=== PATIENT | female | born 1955 | race Caucasian/White ===

== ENCOUNTER → 2017-06-12 07:59 | Outpatient (CLI) | payer OTHER, SELFPAY ==
--- NOTE | 2017-06-12 08:01 | US_ITS ---
STUDY: THYROID ULTRASOUND REASON FOR EXAM: Female, 62 years old. Thyromegaly. TECHNIQUE: Ultrasound evaluation of the thyroid was performed with real-time and static wyatt-scale imaging. COMPARISON: None. FINDINGS: RIGHT LOBE: The right lobe of the thyroid gland measures 4.0 cm x 1.4 cm x 0.8 cm. There is a focal calcification measuring 2 mm x 1 mm x 2 mm is seen in the upper pole of the right lobe. There are no demonstrated solid, cystic or complex lesions. LEFT LOBE: The left lobe of the thyroid gland measures 4.5 cm x 1.2 cm x 0.9 cm. There is a homogeneous echotexture. There are no demonstrated solid, cystic or complex lesions. ISTHMUS: The isthmus measures 3.0 mm. The regional lymph nodes are normal. US/Thyroid IMPRESSION: Normal ultrasound examination of the thyroid. Small calcification in the upper pole of the right lobe of the thyroid. Electronically Signed: Reddy Quintero MD at 14:17 EST Tel [phone], Service support ,
== END ==
PROVIDERS: Family Provider Internal Medicine; PCP Internal Medicine; Visit Provider Internal Medicine
DX: E01.0 Iodine-deficiency related diffuse (endemic) goiter (principal)
CPT/HCPCS: 76536

== ENCOUNTER 2018-07-04 19:34 | Emergency (ER) | payer OTHER, SELFPAY ==
[2018-07-04 19:35] VITALS: BP 168/86; PULSE 86; RESP 17; TEMP 36.8; O2SAT 99; BMI 36.4
--- NOTE | 2018-07-04 19:39 | ED.RN ---
CHARGE NURSE NOTIFIED OF PT SX. PT NOW SX FREE.
[2018-07-04 20:37] VITALS: BP 121/65; PULSE 77; RESP 21; O2SAT 96
[2018-07-04 20:53] LABS: Anion Gap 8 (5-15); BUN 20 mg/dL (7-18); BUN/Creat Ratio 20.9 RATIO (10-20); Calcium,Total 9.1 mg/dL (8.5-10.1); Chloride 103 mmol/L (98-107); Creatinine, Serum 0.96 mg/dL (0.55-1.02); EST Glomerular Filtration Rate 62 mL/min (>60); Est Glom Filt Rate - Afr Amer 76 mL/min (>60); Estimated Creatinine Clearance 53.27 ml/min; Glucose 127 mg/dL (74-106); Potassium 3.5 mmol/L (3.5-5.1); Sodium Level 137 mmol/L (136-145)
[2018-07-04 21:04] VITALS: BP 121/65; PULSE 79; RESP 14; O2SAT 95
--- NOTE | 2018-07-04 21:15 | ED.VISSUMM ---
- ER Visit Summary Date of Service: 07/04/18 Chief Complaint: Paresthesia History of Present Illness: The patient is a 63 F presenting with numbness both arms. Patient states this occurred 2 hours ago. She states she was laying on the couch and noticed numbness and heaviness of both of her arms. The symptoms lasted approximately 1 minute. She got up and washed the dishes. She started to panic concerned that the symptoms would return and started hyperventilating. She had no numbness or weakness of her legs. No vision changes. No speech changes. She had no lightheadedness or syncope. No chest pain or shortness of breath. No balance problems. She has no PE/DVT risk factors. No recent illness. No other complaints. Physical Examination: Vitals are stable. Patient is afebrile. Alert no acute distress. HEENT exam is unremarkable. Neck is supple. Lungs are clear and equal bilaterally. Heart is regular rate and rhythm. Abdomen is soft nontender nondistended. Extremities are unremarkable. Skin is warm and dry. No focal neurologic deficit. NIH 0 Remainder of exam is unremarkable. Emergency Department Course and Treatment: Patient is asymptomatic in the ED. She states her symptoms lasted for approximately 1 minute. Her symptoms were bilateral. Chemistries were obtained which show glucose 127, BUN 20. Patient remains asymptomatic in the ED. She is advised signs and symptoms for which to return to the ED. Advised follow-up with primary care physician. Disposition: Discharge home Impression: Paresthesias, resolved This note was generated with [employer] dictation software. It may contain incorrect words, spelling, and punctuation that were not noted in review of the chart prior to signing ED Disposition - Plan for ED Patient: Referrals: Kristy Duran DO [Primary Care Provider] -
--- NOTE | 2018-07-04 21:19 | ED.DCSUM_ITS ---
- ER Visit Summary Date of Service: 07/04/18 Chief Complaint: Paresthesia History of Present Illness: The patient is a 63 F presenting with numbness both arms. Patient states this occurred 2 hours ago. She states she was laying on the couch and noticed numbness and heaviness of both of her arms. The symptoms lasted approximately 1 minute. She got up and washed the dishes. She started to panic concerned that the symptoms would return and started hyperventilating. She had no numbness or weakness of her legs. No vision changes. No speech changes. She had no lightheadedness or syncope. No chest pain or shortness of breath. No balance problems. She has no PE/DVT risk factors. No recent illne ss. No other complaints. Physical Examination: Vitals are stable. Patient is afebrile. Alert no acute distress. HEENT exam is unremarkable. Neck is supple. Lungs are clear and equal bilaterally. Heart is regular rate and rhythm. Abdomen is soft nontender nondistended. Extremities are unremarkable. Skin is warm and dry. No focal neurologic deficit. NIH 0 Remainder of exam is unremarkable. Emergency Department Course and Treatment: Patient is asymptomatic in the ED. She states her symptoms lasted for approximately 1 minute. Her symptoms were bilateral. Chemistries were obtained which show glucose 127, BUN 20. Patient remains asymptomatic in the ED. She is advised signs and symptoms for which to return to the ED. Advised follow-up with primary care physician. Disposition: Discharge home Impression: Paresthesias, resolved This note was generated with [employer] dictation software. It may contain incorrect words, spelling, and punctuation that were not noted in review of the chart prior to signing ED Disposition - Plan for ED Patient: Referrals: Kristy Duran DO [Primary Care Provider] -
--- NOTE | 2018-07-04 21:19 | ED.DEP ---
ED Disposition - Plan for ED Patient: Instructions: ED Paraesthesias Referrals: Kristy Duran DO [Primary Care Provider] -
[2018-07-04 21:28] VITALS: BP 121/62; PULSE 75; RESP 18; O2SAT 97
== END 2018-07-04 21:29 | disposition home or self-care (01) ==
LOC: ED 20:42
PROVIDERS: Emergency Provider Emergency Medicine; Family Provider Internal Medicine; PCP Internal Medicine
DX: R20.2 Paresthesia of skin (principal); I10 Essential (primary) hypertension; E78.00 Pure hypercholesterolemia, unspecified
CPT/HCPCS: 80048; 99284; A4216

== ENCOUNTER → 2018-07-20 12:51 | Outpatient (CLI) | payer SELFPAY ==
[2018-07-04 19:35] VITALS: BMI 36.4
--- NOTE | 2018-07-20 12:55 | CT_ITS ---
STUDY: CT CHEST WITHOUT CONTRAST REASON FOR EXAM: Female, 63 years old. Family history of heart disease. RADIATION DOSAGE (If Supplied By Facility): CTDIvol = ( ) mGy, DLP = ( ) mGycm TECHNIQUE: Transaxial imaging was performed without the administration of intravenous contrast material. Individualized dose optimization techniques were used for this CT. COMPARISON: Report from chest CT dated 01/27/2010 FINDINGS: 4 mm round noncalcified nodule lateral right lower lobe is evident on image 31 of series 3. There is no demonstrated pleural abnormality. Normal heart and pericardium. There are calcifications of the coronary arteries. Normal mediastinum. Normal hilar regions. Normal unenhanced pulmonary arteries. Mild scattered atherosclerosis. There are multi-level spondylosis degenerative changes of the thoracic spine. There is no demonstrated abnormality of the visualized upper abdomen. CT/Limited Chest CT w/CCTA IMPRESSION: 1. 4 mm noncalcified right lower lobe nodule. Similar by report of chest CT 01/27/2010, images not available for direct comparison. Electronically Signed: Clarke Morris MD at 13:03 EDT , Service support ,
--- NOTE | 2018-07-20 13:27 | EKG12_ITS ---
Test Reason : ARM HEAVINESS Blood Pressure : / mmHG Vent. Rate : 064 BPM Atrial Rate : 064 BPM P-R Int : 174 ms QRS Dur : 102 ms QT Int : 414 ms P-R-T Axes : 070 -19 050 degrees QTc Int : 427 ms Normal sinus rhythm Incomplete right bundle branch block Borderline ECG Confirmed by RADHA MORIN, MOHSEN ([id number]), video editor ETHEL MARMOLEJO ([id number]) on 07/23/2018 2:09:17 PM Referred By: Kristy Duran Confirmed By:MOHESN GARCIA MD
--- NOTE | 2018-07-20 19:44 | CA.SCORE ---
Calcium Scoring Date of Study:: 07/20/18 Coronary Calcium Scoring: High-resolution Computed Tomographic imaging of the chest was performed on 07-21-18, with particular attention paid to the coronary arteries. Images from the examination were analyzed for the presence and extent of coronary artery calcification , using coronary calcium quantification software. The patient tolerated the procedure well and there were no complications. The results of the coronary calcification analysis are provided below. - Findings Left Main (LM): 0 Left Anterior Descending (LAD): 166 Left Circumflex (LCX): 59 Right Coronary Artery (RCA): 0 Total Agatston Score: 225 Percentile Rankin - Conclusion Calcium Scoring Interpretation: Calcium Score Interpretation 0 No identifiable atherosclerotic plaque. Very low cardiovascular disease risk. <5% chance of presence coronary artery disease A Negative Examination 1-10 Minimal Plaque burden. Significant coronary artery disease very unlikely. 11-100 Mild plaque burden. Likely mild or minimal coronary atherosclerosis. 101-400 Moderate plaque burden Moderate non-obstructive coronary artery disease highly likely. Over 400 Extensive plaque burden. High likelihood of at least one significant coronary stenosis (>50% diameter) Calcium Score: 101 - 400 Moderate non-obstructive coronary artery disease highly like - A coronary calcium score of 225, based upon pre-published reference tables, would be compatible with concerns of moderate plaque burden and the high likelihood of moderate nonobstructive coronary artery disease.
== END ==
PROVIDERS: Family Provider Internal Medicine; PCP Internal Medicine; Referring Provider Internal Medicine; Visit Provider Internal Medicine
DX: Z82.49 Family history of ischemic heart disease and other diseases of the circulatory system (principal); R29.898 Other symptoms and signs involving the musculoskeletal system
CPT/HCPCS: 75571; 76380; 93005

== ENCOUNTER → 2019-01-28 08:49 | Outpatient (CLI) | payer OTHER, SELFPAY ==
[2019-01-24 14:22] VITALS: BMI 35.0
== END ==
PROVIDERS: Family Provider Internal Medicine; PCP Internal Medicine; Referring Provider Internal Medicine Cardiovascular Disease; Visit Provider Internal Medicine Cardiovascular Disease
DX: R00.0 Tachycardia, unspecified (principal)
CPT/HCPCS: 93225; 93226

== ENCOUNTER → 2019-02-12 06:16 | Outpatient (CLI) | payer OTHER, SELFPAY ==
[2019-01-24 14:22] VITALS: BMI 35.0
--- NOTE | 2019-02-12 09:21 | STRESSREP ---
Stress Test Report Date: 02-12-19 Procedure: Exercise tolerance test/imaging study Indications: Palpitations, abnormal cardiac CT scan/coronary calcium score Consent: Per the patient Procedure: The patient exercised on a Rivera protocol for 6 minutes completing Stage II achieving a peak heart rate of 137 bpm (87 % predicted maximal heart rate) with a peak blood pressure 166/58 mmHg and a peak MET capacity of 7 METs. The baseline ECG demonstrated normal sinus rhythm. The peak exercise ECG demonstrated approximately 1 to [address] segment depression in leads II, III, aVF, and approximately 0.5 to [address] segment depression in leads V4 through V6 with subsequent gradual resolution to baseline in recovery. [There were no cardiac dysrhythmias pretest, during exercise, or recovery]. The functional capacity was considered average. There was [no complaint of chest discomfort during exercise or recovery]. The examination was discontinued secondary to dyspnea. Impression: 1. Technically adequate (percent predicted maximal heart rate greater than 85%) exercise tolerance test 2. Peak exercise ECG with approximately 1 to [address] segment depression in leads II, 3, aVF, and approximately 0.5 to [address] segment depression in leads V4 through V6 with subsequent gradual resolution to baseline in recovery 3. [There were no cardiac dysrhythmias pretest, during exercise, or recovery] 4. Nuclear images pending Myocardial perfusion imaging study: Technique: The patient was injected with 12.0 mCi of technetium 99m Cardiolite and subsequently rest SPECT Cardiolite nuclear imaging was obtained in the horizontal long, vertical long, and short axis views. The patient exercised on a Rivera protocol for 6 minutes completing Stage II achieving a peak heart rate of 137 bpm (87 % predicted maximal heart rate) with a peak blood pressure 166/58 mmHg and a peak MET capacity of 7 METs. The patient was injected with 35.6 mCi of technetium 99m Cardiolite and subsequently stress SPECT Cardiolite nuclear imaging was obtained in the horizontal long, vertical long, and short axis views. A gated Cardiolite study at peak stress was obtained. Interpretation: Rest and stress SPECT Cardiolite nuclear imaging status post realignment, normalization, and attenuation correction, demonstrates extracardiac/gastrointestinal tracer uptake. Otherwise there appears to be relative uniform tracer uptake and myocardial perfusion appearing within normal limits. [There is end systolic thickening and brightening]. The gated Cardiolite study demonstrates [myocardial thickening and inward wall motion]. The reported LVEF is 74 %. Impression: 1. Rest and stress SPECT Cardiolite nuclear imaging demonstrate findings compatible with extracardiac/gastrointestinal tracer uptake and otherwise of uniform tracer uptake and myocardial perfusion appearing within normal limits. 2. The gated Cardiolite study reports an LVEF of 74 %. This note was generated with [employer] software. It may contain incorrect words, spelling, and punctuation that were not noted in checking the note before signing.
== END ==
PROVIDERS: Family Provider Internal Medicine; PCP Internal Medicine; Referring Provider Internal Medicine Cardiovascular Disease; Visit Provider Internal Medicine Cardiovascular Disease
DX: R00.0 Tachycardia, unspecified (principal); E78.00 Pure hypercholesterolemia, unspecified; I10 Essential (primary) hypertension; R93.1 Abnormal findings on diagnostic imaging of heart and coronary circulation
CPT/HCPCS: 78452; 93017; A9500; A4216

== ENCOUNTER 2019-03-08 07:08 | Day surgery (SDC) | payer OTHER, SELFPAY ==
[2019-01-24 14:22] VITALS: BMI 35.0
[2019-02-26 12:59] VITALS: BMI 36.4
--- NOTE | 2019-02-26 14:05 | RAD_ITS ---
HISTORY: SOB, pt. states she has chest discomfort off and on, pre heart cath EXAM: XR Chest 2 Views: COMPARISON: CT scan of the chest is partly available from July 20, 2018 FINDINGS: # of images incl. paperwork: 2 Lungs are clear. Heart is not enlarged. Bones are normal. Pulmonary vascularity is distinct. No effusions. RAD/Chest PA and Lateral IMPRESSION: Normal. at 0243 Reported and signed by: Barry Vizcarra MD Electronically Signed: Barry Vizcarra MD at 2:42 EST Tel , Service support ,
[2019-02-26 15:21] LABS: Hematocrit 40.7 % (37-47); Hemoglobin 12.8 g/dL (12.0-15.0); Mean Corp Hgb Conc 31.4 g/dL (32-36); Mean Corpuscular Hgb 27.9 pg (27.0-32.0); Mean Corpuscular Volume 88.7 fL (81-99); Mean Platelet Vol. 9.5 fl (6.2-12.0); Platelet Count 339 K/mm3 (150-450); RBC Distribution Width CV 13.8 % (11.6-14.6); RBC Distribution Width SD 44.8 fl (35.1-43.9); Red Blood Count 4.59 M/mm3 (4.2-5.4); White Blood Count 10.1 K/mm3 (4.4-11.0)
[2019-02-26 15:33] LABS: International Normalized Ratio 0.9; Prothrombin Time (Protime)PT. 12.2 SECONDS (11.7-14.9)
[2019-02-26 15:34] LABS: Partial Thromboplast Time 26.9 Seconds (24.1-36.2)
[2019-02-26 15:56] LABS: Anion Gap 8 (5-15); BUN 17 mg/dL (7-18); BUN/Creat Ratio 20.1 RATIO (10-20); Calcium,Total 8.9 mg/dL (8.5-10.1); Chloride 103 mmol/L (98-107); Creatinine, Serum 0.85 mg/dL (0.55-1.02); EST Glomerular Filtration Rate 72 mL/min (>60); Est Glom Filt Rate - Afr Amer 87 mL/min (>60); Glucose 77 mg/dL (74-106); Potassium 3.6 mmol/L (3.5-5.1); Sodium Level 139 mmol/L (136-145)
--- NOTE | 2019-03-08 07:06 | HP.PCM_ITS ---
Problem List (1) Chest pain Status: Acute (2) Shortness of breath Status: Acute (3) Abnormal stress test Status: Acute (4) Abnormal cardiac CT angiography Status: Acute (5) Pure hypercholesterolemia Status: Chronic (6) Benign essential hypertension Status: Chronic History and Physical Date of Admission: 03/08/19 [facility] [address] [place] [address] OFFICE VISIT Date of Service: 02/26/19 MR#: [id number] Acct: [id number] Name: CHARLENE CLEMENTS Rep #: [id number] : 1955 Provider: Steph Meraz Age/Sex: 63/F Location: [facility] Status: Signed HPI [facility] History of Present Illness Details: This is a 63-year-old female that recently established with us for an abnormal calcium score and tachycardia. She also has a history of hypertension, hyperlipidemia and diabetes. Pt does not that she is winded with activity. It is difficult to say if this is related to her weight or her heart. Sometimes she does feel a slight chest heaviness. This is usually at rest. It lasts a few minutes. It is a 3/10. This occurs a few times a week. She is sometimes SOB at rest. She does not have any orthopnea. She does occasionally have palpitations. These last from a few minutes to one hour. She does not have any near syncope/syncope. She does occasionally have lightheadedness- she questions if this is related to her diet. She does not have any edema. Pt has multiple questions, they were answered. Intake Vital Signs 02/26/19 Height 5 ft 5 in 02/26/19 Weight: 219 lb 02/26/19 Body Mass Index (BMI) 36.4 02/26/19 Blood Pressure 112/60 02/26/19 Blood Pressure Location Lt brachial 02/26/19 Blood Pressure Position Sitting 02/26/19 Respiratory Rate 16 02/26/19 Pulse Source Monitor Intake Visit Reasons: update H & P Sweeper Driver Required: No Accompanied by: None Is patient in pain?: No Allergies rosuvastatin [From Crestor] Adverse Reaction (Unknown, Verified 02/26/19 13:00) Unknown Penicillins Adverse Reaction (Verified 02/26/19 13:00) Other Medications atorvastatin 40 mg tablet 40 mg PO QHS tab 01/04/19 [History Confirmed 02/26/19] lorazepam 0.5 mg tablet 0.5 mg PO Q6H PRN tab 01/04/19 [History Confirmed 01/24/19] metformin 500 mg tablet 1,000 mg PO DAILY tab 01/04/19 [History Confirmed 02/26/19] metoprolol succinate ER 25 mg tablet,extended release 24 hr 25 mg PO DAILY 01/04/19 [History Confirmed 02/26/19] aspirin 81 mg tablet,delayed release 81 mg PO DAILY 01/24/19 [History Confirmed 02/26/19] estradiol 0.5 mg tablet 0.5 mg PO .QOD tab 01/24/19 [History Confirmed 02/26/19] hydrochlorothiazide 12.5 mg tablet 12.5 mg PO DAILY 01/24/19 [History Confirmed 02/26/19] lisinopril 20 mg tablet 20 mg PO DAILY 01/24/19 [History Confirmed 02/26/19] clopidogrel 75 mg tablet 75 mg PO DAILY #30 tab 02/26/19 [Rx Confirmed 02/26/19] [facility] Medical History Hypothyroidism (Chronic) Type 2 diabetes mellitus (Chronic) Pure hypercholesterolemia (Chronic) Tachycardia (Acute) Abnormal cardiac CT angiography (Acute) Benign essential hypertension (Chronic) Nodule of right lung (Chronic) Thyromegaly (Chronic) Surgical History History of appendectomy (Resolved) History of dilatation and curettage (Resolved) History of total hysterectomy (Resolved) Family History Mother Abdominal aortic aneurysm (AAA) Sister Hypertension Diabetes Father CAD (coronary artery disease) Social History (Updated 02/26/19 @ 14:09 by JADEN Beauchamp) Smoking Status: Former smoker alcohol intake: never substance use type: does not use caffeine: Yes Type: carbonated beverages Number of servings: 1 ROS Const Const: Positive for fatigue; negative for weakness, frequent falls, excessive sweating, weight gain or weight loss Eyes Eyes: Negative for transient loss of vision, blurry vision or change in vision ENT ENT: Positive for dizziness (quick head turns on occasion); negative for balance problems Cardio Chest Pain: No Palpitations: Yes (QOD) feels like its: fast, pounding, irregular Edema: Bilateral (occasional) Muscle aches with walking: None Resp Respiratory: Positive for SOB with activity (with palpitations and activity); negative for SOB at rest GI GI: Negative vomiting or vomiting blood/hematemesis : Negative for hematuria Musc Musc: Negative for balance problems Skin Skin: Negative non-healing lesions or rash Neuro Neuro: Positive for dizziness (quick head turns on occasion); negative for frequent falls, weakness or blurry vision [place] Hematologic/Lymphatic: Negative for easy bleeding Endo Endo: Positive for fatigue; negative for excessive sweating Psych Psych: Negative for anxiety or depression Allergy Allergy/Immunology: Negative for rash Cardiology Exam Const Appearance: cooperative, no acute distress and well developed Nutritional Appearance: obese Orientation: alert, awake and oriented x3 Head Head: normocephalic and atraumatic Mouth: moist mucous membranes Eyes General: appearance normal, both eyes and all related structures Conjunctivae: conjunctivae normal Pupils: PERRL EOM: EOM intact bilaterally Neck Neck: normal visual inspection, no lymphadenopathy and no JVD Carotids: Negative bruit Neck Mass: Negative Neck mass Chest Chest inspection: normal inspection of the chest and symmetric chest movement Auscultation: Bilateral: Clear to Auscultation Cardio Palpation: normal PMI Rate: regular rate Rhythm: regular rhythm Heart sounds: S1 normal and S2 normal; negative rub, gallop or murmur GI GI: normal to inspection, soft, no hepatosplenomegaly, bowel sounds present and obese; negative tender Neuro General: alert, awake, oriented x3, CN's II-XI intact bilaterally and moves all extremities Extremities Pulses: Normal: Right Posterior Tibial Pulse, Left Posterior Tibial Pulse, Right Radial Pulse, Left Radial Pulse Lower Extremity Edema: None: Bilateral Psych Psychological: normal affect Assessment & Plan 1. Abnormal stress test R94.39 Plan With patient's abnormal calcium score and indeterminate stress test would like to proceed with a diagnostic heart catheterization to further assess. After talking with patient she does have some symptoms that could be concerning for coronary artery disease. Her heart catheterization is scheduled for March [address] Romo. We will follow-up with patient after heart catheterization. 2. Benign essential HTN I10 Plan Blood pressure is well controlled on current medications, we do not recommend any changes at this time. 3. Pure hypercholesterolemia E78.00 Plan managed by her PCP, she will continue with her current medications. 4. Tachycardia R00.0 Plan 48 HM was done, she does have PAC/PVC. For now will continue to monitor. Plan Detail Other Medications New: clopidogrel (Plavix) 75 mg PO DAILY 30 tabs 3RF Additional Comments Thank you for allowing us to participate in patient's plan of care, if you have any questions please do not hesitate to call. This note was generated using a voice recognition system and there may be incorrect words, spelling or punctuation errors that were not noted when reviewing the office note prior to saving. Follow Up 02/26/19 (cancel appt with me on the and make one for 2 weeks after heart cath) Coding Level of Care Code Off vis,est,level 3 Diagnoses Abnormal stress test R94.39 Benign essential HTN I10 Pure hypercholesterolemia E78.00 Tachycardia R00.0 Coding Level of Care Code Off vis,est,level 3 Diagnoses Abnormal stress test R94.39 Benign essential HTN I10 Pure hypercholesterolemia E78.00 Tachycardia R00.0 Supplemental Info Supplemental Information Stress test in 2019: The patient exercised on a Rivera protocol for 6 minutes completing Stage II achieving a peak heart rate of 137 bpm (87 % predicted maximal heart rate) with a peak blood pressure 166/58 mmHg and a peak MET capacity of 7 METs. The baseline ECG demonstrated normal sinus rhythm. The peak exercise ECG demonstrated approximately 1 to [address] segment depression in leads II, III, aVF, and approximately 0.5 to [address] segment depression in leads V4 through V6 with subsequent gradual resolution to baseline in recovery. [There were no cardiac dysrhythmias pretest, during exercise, or recovery]. The functional capacity was considered average. There was [no complaint of chest discomfort during exercise or recovery]. The examination was discontinued secondary to dyspnea. Impression: 1. Technically adequate (percent predicted maximal heart rate greater than 85%) exercise tolerance test 2. Peak exercise ECG with approximately 1 to [address] segment depression in leads II, 3, aVF, and approximately 0.5 to [address] segment depression in leads V4 through V6 with subsequent gradual resolution to baseline in recovery 3. [There were no cardiac dysrhythmias pretest, during exercise, or recovery] 4. Nuclear images pending Myocardial perfusion imaging study: Technique: The patient was injected with 12.0 mCi of technetium 99m Cardiolite and subsequently rest SPECT Cardiolite nuclear imaging was obtained in the horizonta l long, vertical long, and short axis views. The patient exercised on a Rivera protocol for 6 minutes completing Stage II achieving a peak heart rate of 137 bpm (87 % predicted maximal heart rate) with a peak blood pressure 166/58 mmHg and a peak MET capacity of 7 METs. The patient was injected with 35.6 mCi of technetium 99m Cardiolite and subsequently stress SPECT Cardiolite nuclear imaging was obtained in the horizontal long, vertical long, and short axis views. A gated Cardiolite study at peak stress was obtained. Interpretation: Rest and stress SPECT Cardiolite nuclear imaging status post realignment, normalization, and attenuation correction, demonstrates extracardiac/gastrointestinal tracer uptake. Otherwise there appears to be relative uniform tracer uptake and myocardial perfusion appearing within normal limits. [There is end systolic thickening and brightening]. The gated Cardiolite study demonstrates [myocardial thickening and inward wall motion]. The reported LVEF is 74 %. Impression: 1. Rest and stress SPECT Cardiolite nuclear imaging demonstrate findings compatible with extracardiac/gastrointestinal tracer uptake and otherwise of uniform tracer uptake and myocardial perfusion appearing within normal limits. 2. The gated Cardiolite study reports an LVEF of 74 %. Date of Study:: 07/20/18 Coronary Calcium Scoring: High-resolution Computed Tomographic imaging of the chest was performed on 07-21-18, with particular attention paid to the coronary arteries. Images from the examination were analyzed for the presence and extent of coronary artery calcification , using coronary calcium quantification software. The patient tolerated the procedure well and there were no complications. The results of the coronary calcification analysis are provided below. - Findings Left Main (LM): 0 Left Anterior Descending (LAD): 166 Left Circumflex (LCX): 59 Right Coronary Artery (RCA): 0 Total Agatston Score: 225 Percentile Rankin Diagnostics Electrocardiogram 01/24/19 Stress Test Nuclear Medicine 02/12/19 Stress Test 02/12/19 Chest X-Ray 03/08/[address] 07/20/18 02/26/19 [id number] <Electronically signed by Steph Zimmerman> Date _ Steph Serrano Signature: Date (if applicable) CC: Kristy Duran DO ~ I have examined the patient the following changes are noted: Patient underwent exercise tolerance test/imaging study as part of her evaluation for her symptoms and her abnormal cardiac CTA coronary calcium score. The results are as noted below. Stress Test Report Date: 02-12-19 Procedure: Exercise tolerance test/imaging study Indications: Palpitations, abnormal cardiac CT scan/coronary calcium score Consent: Per the patient Procedure: The patient exercised on a Rivera protocol for 6 minutes completing Stage II achieving a peak heart rate of 137 bpm (87 % predicted maximal heart rate) with a peak blood pressure 166/58 mmHg and a peak MET capacity of 7 METs. The baseline ECG demonstrated normal sinus rhythm. The peak exercise ECG demonstrated approximately 1 to [address] segment depression in leads II, III, aVF, and approximately 0.5 to [address] segment depression in leads V4 through V6 with subsequent gradual resolution to baseline in recovery. [There were no cardiac dysrhythmias pretest, during exercise, or recovery]. The functional capacity was considered average. There was [no complaint of chest discomfort during exercise or recovery]. The examination was discontinued secondary to dyspnea. Impression: 1. Technically adequate (percent predicted maximal heart rate greater than 85%) exercise tolerance test 2. Peak exercise ECG with approximately 1 to [address] segment depression in leads II, 3, aVF, and approximately 0.5 to [address] segment depression in leads V4 through V6 with subsequent gradual resolution to baseline in recovery 3. [There were no cardiac dysrhythmias pretest, during exercise, or recovery] 4. Nuclear images pending Myocardial perfusion imaging study: Technique: The patient was injected with 12.0 mCi of technetium 99m Cardiolite and subsequently rest SPECT Cardiolite nuclear imaging was obtained in the horizontal long, vertical long, and short axis views. The patient exercised on a Rivera protocol for 6 minutes completing Stage II achieving a peak heart rate of 137 bpm (87 % predicted maximal heart rate) with a peak blood pressure 166/58 mmHg and a peak MET capacity of 7 METs. The patient was injected with 35.6 mCi of technetium 99m Cardiolite and subsequently stress SPECT Cardiolite nuclear imaging was obtained in the horizontal long, vertical long, and short axis views. A gated Cardiolite study at peak stress was obtained. Interpretation: Rest and stress SPECT Cardiolite nuclear imaging status post realignment, normalization, and attenuation correction, demonstrates extracardiac/gastrointestinal tracer uptake. Otherwise there appears to be relative uniform tracer uptake and myocardial perfusion appearing within normal limits. [There is end systolic thickening and brightening]. The gated Cardiolite study demonstrates [myocardial thickening and inward wall motion]. The reported LVEF is 74 %. Impression: 1. Rest and stress SPECT Cardiolite nuclear imaging demonstrate findings compatible with extracardiac/gastrointestinal tracer uptake and otherwise of uniform tracer uptake and myocardial perfusion appearing within normal limits. 2. The gated Cardiolite study reports an LVEF of 74 %. Is post review of the patient's case it was amended that the patient proceed with further evaluation with diagnostic cardiac catheterization. The procedure and risks were discussed with the patient. She agreed to this approach. This note was generated using a voice recognition system and there may be incorrect words, spelling or punctuation that were not noted when reviewing the office note prior to saving.
--- NOTE | 2019-03-08 09:16 | CL.D_ITS ---
Patient Name: CHARLENE CLEMENTS Study Date: 03/08/2019 Performing: Rich Romo MD Ht: 66.14 inches 168 cm : 1955 Wt: 218.26 lbs 99 kg Age: 63 Gender: female BSA: 2.08 PROCEDURE(S) PERFORMED EE61-DFX/COR/LV CLINICAL PROFILE AND INDICATIONS Indications: Suspected CAD Heart Failure: None Stress/Imaging Date: 02/12/2019Stress Test with SPECT MPI: Positive (ECG portion) Angina Classification Anginal Classification w/in 2 Weeks: CCS III CAD Presentations: Other: chest pain / shortness of breath CONCLUSIONS Elevated Left Ventricular End Diastolic Pressure (mild) Normal LV size, wall motion,and systolic function LVEF: by LV gram 65 % [place] Multivessel CAD (mild luminal irregularities) Comment: Left Ventriculogram: 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 The risks and benefits of the procedure as well as a full d escription of our services here and current unavailability of surgical backup were fully explained to the patient and/or their significant other prior to the catheterization. The Timeout was completed, verifying the correct patient and procedure. The patient's procedural site was prepped and draped in the usual fashion. Local anesthetic was given subcutaneously to right groin region with Lidocaine 2%. Using a modified Seldinger technique, arterial access was obtained via the right femoral artery, a 4 Fr sheath was inserted Left Coronary Artery selective angiography was performed in multiple views us ing a 4 Fr. JL5 catheter. Right Coronary Artery selective angiography was then performed in multiple views using a 4 Fr. 3DRC catheter. Left Ventriculography was performed in VASQUEZ projection using a 4 Fr . Pigtail catheter. LV to AO pullback pressures were then recorded.The arterial sheath was pulled and manual compression applied until hemostasis is achieved. CORONARY ANGIOGRAPHY DOMINANCE: Right Dominant LEFT HEART ASSESSMENT Left Ventricular Ejection Fraction: by LV Gram 65 % Normal LV wall motion Elevated Left Ventricular End Diastolic Pressure LVEDP: 17 mmHg LEFT MAIN: Angiographically normal LEFT ANTERIOR DESCENDING ARTERY: PROX LAD: Mild calcification, Mild luminal irregularities CIRCUMFLEX ARTERY: MID CIRC: Mild luminal irregularities RIGHT CORONARY ARTERY: Mild luminal irregularities COMPLICATIONS No Complications PROCEDURE MEDICATIONS Versed 1 mg IV Oxygen: 2 L/min via nasal cannula SUMMARY OF HEMODYNAMIC DATA Time AIR REST ECG 07:33:39 ECG 08:26:03 AO 105/74 (89) SA 08:40:16 LV 131/-13, 19 08:46:06 LV 131/-13, 17 08:46:13 LV 134/-2, 10 08:47:03 LVp 137/-14, 19 08:47:29 AOp 138/62 (95) 08:47:34 Signed By Rich Romo MD On 03/08/2019 09:15:12 Rich Romo MD
== END 2019-03-08 13:25 | disposition home or self-care (01) ==
LOC: CLSP 07:10
PROVIDERS: Family Provider Internal Medicine; PCP Internal Medicine; Referring Provider Internal Medicine Cardiovascular Disease; Visit Provider Internal Medicine Cardiovascular Disease
DX: I25.10 Atherosclerotic heart disease of native coronary artery without angina pectoris (principal); R00.2 Palpitations; R06.02 Shortness of breath; R94.39 Abnormal result of other cardiovascular function study; I10 Essential (primary) hypertension; E11.9 Type 2 diabetes mellitus without complications; E78.5 Hyperlipidemia, unspecified; Z79.899 Other long term (current) drug therapy; Z79.82 Long term (current) use of aspirin; Z79.84 Long term (current) use of oral hypoglycemic drugs; Z79.02 Long term (current) use of antithrombotics/antiplatelets; Z87.891 Personal history of nicotine dependence
CPT/HCPCS: 36415; 71046; 80048; 85027; 85610; 85730; 93458; 99152; 99153; J7040; C1769; C1894; Q9967

== ENCOUNTER → 2019-03-11 07:54 | Outpatient (CLI) | payer OTHER, SELFPAY ==
[2019-02-26 12:59] VITALS: BMI 36.4
[2019-03-11 09:22] LABS: Anion Gap 8 (5-15); BUN 17 mg/dL (7-18); BUN/Creat Ratio 17.2 RATIO (10-20); Chloride 101 mmol/L (98-107); Creatinine, Serum 0.99 mg/dL (0.55-1.02); EST Glomerular Filtration Rate 60 mL/min (>60); Est Glom Filt Rate - Afr Amer 73 mL/min (>60); Glucose 139 mg/dL (74-106); Sodium Level 139 mmol/L (136-145)
== END ==
PROVIDERS: Family Provider Internal Medicine; PCP Internal Medicine; Referring Provider Internal Medicine Cardiovascular Disease; Visit Provider Internal Medicine Cardiovascular Disease
DX: R06.02 Shortness of breath (principal); I10 Essential (primary) hypertension
CPT/HCPCS: 36415; 80048

== ENCOUNTER → 2019-03-22 12:56 | Outpatient (CLI) | payer OTHER, SELFPAY ==
[2019-02-26 12:59] VITALS: BMI 36.4
--- NOTE | 2019-03-22 12:59 | ECHOCS_ITS ---
Reason For Study: DYPSNEA/SOB Procedure This was a 2D Doppler, Color Flow transthoracic echocardiogram. The study was technically difficult. Contrast injection was performed. Exam performed in department. Left Ventricle Normal LV size. Left ventricular systolic function is normal. The estimated ejection fraction is 60 %. No evidence for diastolic dysfunction. No regional wall motion abnormalities noted. Right Ventricle Normal RV size. Normal systolic function. Atria Normal left atrium. Normal right atrium. No doppler evidence for ASD. Mitral Valve There is mild mitral annular calcification. Extension of the mitral annular calcification onto the posterior mitral valve leaflet. Trivial mitral valve insufficiency. Tricuspid Valve Normal tricuspid valve. Trivial tricuspid valve insufficiency. Right ventricular systolic pressure estimated to be 25 mmHg. Aortic Valve Trisinus/trileaflet aortic valve. Mild focal aortic valve calcification. Pulmonic Valve The pulmonic valve is not well visualized. Trivial pulmonic valve insufficiency. Great Vessels Normal sized aortic root. Pericardium/Pleural No pericardial effusion. Medication 22 gauge I.V. with prn adaptor inserted into left arm. Diluted definity 4ml given slow IV push to enhance endocardial definition. MMode/2D Measurements & Calculations LVIDd: 4.3 cm IVSd: 0.86 cm Ao root diam: 2.7 cm LVIDs: 2.9 cm LVPWd: 0.91 cm FS: 33.2 % LAV(MOD-bp): 37.5 ml LVAd ap4: 20.3 cm2 SV(MOD-sp4): 33.5 ml LAV(MOD-bp) Indexed: 18.3 ml/m2 EDV(MOD-sp4): 52.8 ml LAV(MOD-sp2): 29.4 ml EDV(sp4-el): 55.2 ml LAV(MOD-sp4): 39.7 ml LVAs ap4: 10.7 cm2 ESV(MOD-sp4): 19.3 ml ESV(sp4-el): 20.0 ml EF(MOD-sp4): 63.4 % EF(sp4-el): 63.7 % SV(sp4-el): 35.2 ml LA A4 area: 16.6 cm2 LA dimension(2D): 3.8 cm Time Measurements MV dec time: 0.19 sec Doppler Measurements & Calculations MV E max kris: 102.6 cm/sec Lat Peak E' Kris: 8.8 cm/sec Med Peak E' Kris: 11.3 cm/sec MV A max kris: 94.4 cm/sec E/E' lat: 11.6 E/E' med: 9.1 MV E/A: 1.1 Ao V2 max: 130.1 cm/sec LV V1 max: 93.2 cm/sec PA V2 max: 90.9 cm/sec Ao max P.8 mmHg LV V1 max P.5 mmHg TR max kris: 233.5 cm/sec TR max P.8 mmHg Interpretation Summary The study was technically difficult. Contrast injection was performed. Left ventricular systolic function is normal. The estimated ejection fraction is 60 %. There is mild mitral annular calcification. Extension of the mitral annular calcification onto the posterior mitral valve leaflet. Trivial mitral valve insufficiency. Trivial tricuspid valve insufficiency. Mild focal aortic valve calcification. Trivial pulmonic valve insufficiency. Right ventricular systolic pressure estimated to be 25 mmHg. No evidence for diastolic dysfunction. Ordering Physician: Demetrius^Rich^^^ Referring Physician: GI ALBARRAN Performed By: Rylie Denson, TEDDY
== END ==
PROVIDERS: Family Provider Internal Medicine; PCP Internal Medicine; Referring Provider Internal Medicine Cardiovascular Disease; Visit Provider Internal Medicine Cardiovascular Disease
DX: R06.02 Shortness of breath (principal); R07.9 Chest pain, unspecified; R94.39 Abnormal result of other cardiovascular function study; I10 Essential (primary) hypertension; E78.00 Pure hypercholesterolemia, unspecified; R00.0 Tachycardia, unspecified
CPT/HCPCS: 93306; Q9957; A4216; C8929

== ENCOUNTER → 2019-08-09 14:10 | Outpatient (CLI) | payer BC, SELFPAY ==
[2019-02-26 12:59] VITALS: BMI 36.4
== END ==
PROVIDERS: PCP Internal Medicine; Referring Provider Obstetrics & Gynecology; Visit Provider Obstetrics & Gynecology
DX: R30.0 Dysuria (principal)
CPT/HCPCS: 87086; 87088

== ENCOUNTER → 2020-03-18 09:52 | Outpatient (CLI) | payer BC, SELFPAY ==
[2019-02-26 12:59] VITALS: BMI 36.4
[2020-03-10 10:15] VITALS: BMI 34.6
--- NOTE | 2020-03-18 09:57 | US_ITS ---
STUDY: THYROID ULTRASOUND REASON FOR EXAM: Female, 64 years old. THYROMEGALY , nodules TECHNIQUE: Ultrasound evaluation of the thyroid was performed with real-time and static wyatt-scale imaging. COMPARISON: 06/12/2017 FINDINGS: RIGHT LOBE: The right lobe of the thyroid gland measures 4.3 x 1.1 x 1.0 cm. There is a homogeneous echotexture. There is a new hyperechoic solid mass without flow in the upper pole measuring 0.2 x 0.2 x 0.2 cm, there is a anechoic 0.5 cm cyst in the lower pole. LEFT LOBE: The left lobe of the thyroid gland measures 4.7 x 1.1 x 0.7 cm. There is a homogeneous echotexture. There are no demonstrated solid, cystic or complex lesions. ISTHMUS: The isthmus measures 3 mm. The regional lymph nodes are normal. US/Thyroid IMPRESSION: Normal sized homogeneous thyroid gland, there is a new hyperechoic 0.2 x 0.2 x 0.2 cm nodule in the right lobe which is too small to characterize. Recommend 6 month follow-up to ensure stability Electronically Signed: William Wilkerson MD at 17:18 EST , Service support ,
== END ==
PROVIDERS: PCP Internal Medicine; Referring Provider Internal Medicine; Visit Provider Internal Medicine
DX: E01.0 Iodine-deficiency related diffuse (endemic) goiter (principal)
CPT/HCPCS: 76536

== ENCOUNTER → 2020-04-08 08:40 | Outpatient (CLI) | payer BC, SELFPAY ==
[2020-03-10 10:15] VITALS: BMI 34.6
--- NOTE | 2020-04-08 08:41 | BI_ITS ---
MAMMOGRAPHY - BILATERAL SCREENING REASON FOR EXAM: Female, 64 years old. Routine annual screening examination. PERTINENT HISTORY: Non-contributory. History of prior bilateral breast reduction surgery. TECHNIQUE: Digital bilateral breast farrah (3D mammographic acquisition) in the CC and MLO projections. 2-D mediolateral oblique (MLO) and craniocaudad (CC) views of both breasts were obtained. CAD: Full Field Digital Mammography with Computer Added Detection was performed. COMPARISON: Comparison is made with prior examination dated 01/28/2019. FINDINGS: Breast Composition: The breasts are almost entirely fatty. There are no dominant masses or suspicious calcifications. Stable small benign-appearing bilateral axillary lymph nodes. No other significant abnormalities are identified. There has been no significant change since the prior study. BI/SCREEN MAMM (CAD) W/FARRAH BILAT IMPRESSION: Stable bilateral screening mammogram. Yearly follow-up mammogram recommended. (A) ASSESSMENT CATEGORY: BIRADS Category 2: Benign. A letter regarding these results will be sent to the patient by the facility within 30 days. Approximately 10% of breast cancers are not detected by mammography. A normal mammogram should not delay biopsy of a clinically suspicious abnormality. [id number] Electronically Signed: Reddy Quintero, at 9:37 EST , Service support ,
== END ==
PROVIDERS: PCP Internal Medicine; Referring Provider Nurse Practitioner Women's Health; Visit Provider Nurse Practitioner Women's Health
DX: Z12.31 Encounter for screening mammogram for malignant neoplasm of breast (principal)
CPT/HCPCS: 77063; 77067

== ENCOUNTER 2020-11-25 16:34 | Emergency (ER) | payer BC, SELFPAY ==
[2020-03-10 10:15] VITALS: BMI 34.6
[2020-11-25 16:35] VITALS: BP 140/80; PULSE 95; RESP 16; TEMP 37.2; O2SAT 99; BMI 35.9
--- NOTE | 2020-11-25 18:18 | CT_ITS ---
STUDY: CT ABDOMEN AND PELVIS WITH CONTRAST REASON FOR EXAM: Female, 65 years old. diverticulitis RADIATION DOSAGE (If Supplied By Facility): CTDIvol = ( 16.97 ) mGy, DLP = ( 1151.85 ) mGycm TECHNIQUE: Transaxial images were obtained from the dome of the diaphragm to the symphysis pubis without oral contrast. IV 100mL Isovue-370 was administered. Sagittal and coronal images were reconstructed. Individualized dose optimization techniques were used for this CT. COMPARISON: 01/04/2013. FINDINGS: The visualized lung bases are unremarkable. The visualized portions of the heart are within normal limits. There is decreased attenuation of the liver consistent with steatosis. Normal gallbladder and extrahepatic biliary system. Normal spleen. Normal pancreas. Normal bilateral adrenal glands. Normal right kidney. Normal left kidney. Evaluation of the GI tract is limited by absence of oral contrast. Cannot exclude stomach wall thickening. No dilated loops of bowel or evidence for obstruction. Cannot exclude segmental thickening of the mcclain of the small or large bowel. Cannot exclude enteritis or colitis. Moderate diffuse fecal retention. Mild diverticulosis without evidence of diverticulitis. Appendix is not definitely seen. Normal abdominal aorta. Normal inferior vena cava. Normal retroperitoneum. Normal urinary bladder. There is absence of the uterus consistent with a prior hysterectomy. Normal abdominal wall. There are diffuse degenerative changes of the visualized lumbar spine. CT/Abdomen/Pelvis W IV Cont ONLY IMPRESSION: No definite acute or significant abnormality seen. Electronically Signed: Keaton Diaz MD at 19:55 EDT , Service support ,
[2020-11-25] MEDS: 0.9% Normal Saline 1,000 ML 125 ML IV (18:26)
[2020-11-25] MEDS: Ondansetron 4 MG/2 ML Vial IV (18:27)
[2020-11-25] MEDS: Morphine 4 MG/ML Syringe IV (18:27)
[2020-11-25 18:34] VITALS: PULSE 89; RESP 15; O2SAT 97
[2020-11-25 18:53] LABS: Absolute Lymphocyte Count 3.09 X10^3/uL (0.83-4.51); Absolute Neutrophil Count 10.6 X10^3/uL (2.0-7.7); Basophil# 0.07 X10^3/uL; Basophil% 0.5 % (0-1); Eosinophil# 0.17 X10^3/uL; Eosinophils% 1.1 % (0-5); Hematocrit 44.1 % (37-47); Lymphocyte # 3.09 X10^3/ul (0.83-4.51); Lymphocyte % 20.5 % (19-41); Mean Corp Hgb Conc 31.7 g/dL (32-36); Mean Corpuscular Hgb 27.8 pg (27.0-32.0); Mean Corpuscular Volume 87.5 fL (81-99); Mean Platelet Vol. 9.9 fl (6.2-12.0); Monocyte# 1.03 X10^3/uL; Monocyte% 6.8 % (0-10); NRBC Flagged by Analyzer 0 % (0-5); Neutrophil # 10.64 X10^3/uL (2.7-7.7); Neutrophil % 70.6 % (47-70); Platelet Count 440 K/mm3 (150-450); RBC Distribution Width CV 13.3 % (11.6-14.6); RBC Distribution Width SD 43.1 fl (35.1-43.9); Red Blood Count 5.04 M/mm3 (4.2-5.4); White Blood Count 15.1 K/mm3 (4.4-11.0)
[2020-11-25 19:01] LABS: Anion Gap 6 (5-15); BUN 23 mg/dL (7-18); BUN/Creat Ratio 20.9 RATIO (10-20); Calcium,Total 10.6 mg/dL (8.5-10.1); Chloride 100 mmol/L (98-107); EST Glomerular Filtration Rate 53 mL/min (>60); Est Glom Filt Rate - Afr Amer 64 mL/min (>60); Estimated Creatinine Clearance 45.27 ml/min; Glucose 131 mg/dL (74-106); Potassium 3.7 mmol/L (3.5-5.1); Sodium Level 136 mmol/L (136-145)
--- NOTE | 2020-11-25 19:03 | ED.VIS.GI ---
HPI HPI - GI History of Present Illness Chief Complaint: Abd Pain Narrative Narrative: Patient presenting for evaluation secondary to abdominal pain. Patient has recent history of diverticulitis. She was treated with Cipro and Flagyl, and is at the completion of her treatment regimen. Patient states that she initially had left lower quadrant abdominal pain which did improve with her treatment, but she states over the course of about the last 24 hours she has had a reemergence of pain that somewhat different. This is more of a periumbilical pain that is been associated with some nausea and vomiting. She denies any presence of fevers. She does endorse that she had a bloody bowel movement today, and states that she has been having loose stools throughout the course of her treatment. Patient denies any objective fevers associated with this. Review of systems otherwise negative. [facility] Medical History Abnormal cardiac CT angiography Benign essential hypertension History of left heart catheterization (LHC) (~03/08/19) Hypothyroidism Nodule of right lung Pure hypercholesterolemia Thyromegaly Type 2 diabetes mellitus Home Medications atorvastatin 40 mg tablet 40 mg PO QHS tab 01/04/19 [History Last Taken Unknown] metformin 500 mg tablet 1,000 mg PO DAILY tab 01/04/19 [History Last Taken 03/07/19] metoprolol succinate 25 mg tablet,extended release 24 hr 25 mg PO DAILY 01/04/19 [History Last Taken 03/08/19] aspirin 81 mg tablet,delayed release 81 mg PO DAILY 01/24/19 [History Last Taken 03/08/19] hydrochlorothiazide 12.5 mg tablet 12.5 mg PO DAILY 01/24/19 [History Last Taken Unknown] lisinopril 20 mg tablet 20 mg PO DAILY 01/24/19 [History Last Taken 03/08/19] ascorbic acid 125 mg-collagen, hydrolyzed 740 mg capsule 1 cap PO DAILY 03/10/20 [History Last Taken Unknown] biotin 1 mg capsule 1 mg PO DAILY 03/10/20 [History Last Taken Unknown] estradiol See Rx Instructions VAGINAL .COMPLEX #42.5 g 03/10/20 [Rx Last Taken Unknown] estradiol 0.5 mg tablet 0.25 mg PO .QOD #60 tab 03/10/20 [Rx Last Taken Unknown] multivitamin 1 tab PO DAILY 03/10/20 [History Last Taken Unknown] ondansetron 4 mg PO Q8H PRN PRN #10 tab 11/25/20 [Rx Last Taken Unknown] Allergy/AdvReac Type Severity Reaction Status Date / Time rosuvastatin [From Crestor] AdvReac Unknown Unknown Verified 11/25/20 16:37 Penicillins AdvReac Other Verified 11/25/20 16:37 Family History Mother Abdominal aortic aneurysm (AAA) Sister Hypertension Diabetes Father CAD (coronary artery disease) Surgical History History of appendectomy History of dilatation and curettage History of total hysterectomy Social History household members: spouse number of children: 1 current occupational status: employed current occupation: data review specialist, customer service at [employer] history of recent travel: No sexually active: Yes Smoking Status: Former smoker alcohol intake: current alcohol intake frequency: holidays/special occasions only substance use type: does not use caffeine: Yes Type: carbonated beverages Number of servings: 1 what type of physical activity do you participate in: none seatbelt use: always do you feel safe at home: Yes additional social history: - kyra PISANO ED Constitutional Constitutional ED: Denies chills or fever(s) ENT ENT ED: Denies sore throat Cardiovascular Cardiovascular: Denies chest pain Respiratory/Chest Respiratory/Chest: Denies cough or dyspnea Gastrointestinal Gastrointestinal: Reports abdominal pain and diarrhea Genitourinary Genitourinary ED: Denies dysuria, hematuria or urinary frequency Musculoskeletal Musculoskeletal: Denies myalgias Integumentary Denies rash Neurologic Neurologic: Denies paresthesias or weakness Psychiatric Psychiatric: Denies depression Endocrine Endocrinology: Denies polyuria Hematologic/Lymphatic Hematologic/Lymphatic: Denies easy bleeding or easy bruising Allergic/Immunologic Allergic/Immunologic ED: Denies urticaria EXAM Physical Exam Const Vital Signs: 11/25/20 16:35 11/25/20 18:34 Temperature 99.0 F Temperature Source Temporal Pulse Rate 95 89 Respiratory Rate 16 15 Blood Pressure 140/80 H Blood Pressure Mean 100 Pulse Ox 99 97 Oxygen Delivery Method Room Air Room Air Positive well nourished and well developed General Appearance ED: well developed and NAD HEENT normocephalic and atraumatic Eyes EOMs intact bilaterally General Eye ED: Negative for pale conjunctiva or scleral icterus Neck no lymphadenopathy and supple Resp normal respiratory effort and clear to auscultation bilaterally Cardio regular rate, regular rhythm, no murmurs and peripheral pulses 2+ throughout GI non-distended and no masses Palpation: soft and tender other (Mild periumbilical with no guarding or rebound tenderness noted); Negative for guarding, rigid or rebound tenderness present Back/Spine no CVA tenderness Extremity full ROM General Extremety ED: Negative for edema General Extremity: Negative for edema Neuro moves all extremities and no sensory deficits noted Sensorium / Orientation: alert, oriented to person, oriented to place and oriented to time Motor Exam: strength 5/5 throughout Psych mental status grossly normal Skin Rashes: no rashes MDM MDM MDM Narrative Medical decision making narrative: Patient presented secondary to concern for reemergence diverticulitis with resurgence of nausea and vomiting and a bloody bowel movement. IV was established patient was noted to have a leukocytosis of 15.1. Chemistry was unremarkable. CT abdomen and pelvis with IV contrast was performed, per radiology this shows no acute process. Patient's pain was addressed in the emergency department with morphine and Zofran, she had improvement of her symptoms. At this point I do not feel that the patient requires admission, this likely is normal progression of her diverticulitis and is showing it to have resolution. Patient was educated on signs and symptoms which to return. She did request a discharge prescription for Zofran due to persistent nausea due to her antibiotics. Patient was discharged with this. She will follow-up with primary care. Lab Data Labs: Laboratory Results - last 24 hr 11/25/20 11/25/20 17:55 17:55 WBC 15.1 H RBC 5.04 Hgb 14.0 Hct 44.1 MCV 87.5 MCH 27.8 MCHC 31.7 L RDW Std Deviation 43.1 RDW Coeff of Lucio 13.3 Plt Count 440 MPV 9.9 Immature Gran % (Auto) 0.500 Neut % (Auto) 70.6 H Lymph % (Auto) 20.5 Hardin % (Auto) 6.8 Eos % (Auto) 1.1 Baso % (Auto) 0.5 Absolute Neuts (auto) 10.6 H Absolute Lymphs (auto) 3.09 Nucleated RBC % 0 Sodium 136 Potassium 3.7 Chloride 100 Carbon Dioxide 30.0 Anion Gap 6 BUN 23 H Creatinine 1.10 H Estim Creat Clear Calc 45.27 Est GFR (MDRD) Af Amer 64 Est GFR (MDRD) Non-Af 53 L BUN/Creatinine Ratio 20.9 H Glucose 131 H Calcium 10.6 H Radiography Diagnostic Testing: Radiology Impression Abdomen/Pelvis CT 11/25/20 18:18 IMPRESSION: No definite acute or significant abnormality seen. Electronically Signed: Keaton Diaz MD at 19:55 EDT , Service support , Discharge Plan Triage Chief Complaint: Abd Pain ED Provider: Constantin Askew Dx/Rx/DC Orders Clinical Impression: History of diverticulitis, Abdominal pain Instructions: ED Abdominal Pain Unkn Cause Fem Prescriptions: New ondansetron 4 mg tablet,disintegrating 4 mg PO Q8H PRN PRN (Reason: Nausea) Qty: 10 RF: 0 No Action hydrochlorothiazide 12.5 mg tablet 12.5 mg PO DAILY RF: 0 lisinopril 20 mg tablet 20 mg PO DAILY RF: 0 aspirin [Adult Low Dose Aspirin] 81 mg tablet,delayed release (DR/EC) 81 mg PO DAILY RF: 0 metoprolol succinate 25 mg tablet extended release 24 hr 25 mg PO DAILY RF: 0 atorvastatin 40 mg tablet 40 mg PO QHS RF: 0 metformin 500 mg tablet 1,000 mg PO DAILY RF: 0 multivitamin Tablet 1 tab PO DAILY RF: 0 biotin 1 mg capsule 1 mg PO DAILY RF: 0 ascorbic acid 125 mg-collagen, hydrolyzed 740 mg capsule 125-740 mg capsule 1 cap PO DAILY RF: 0 estradiol 0.5 mg tablet 0.25 mg PO .QOD Qty: 60 RF: 3 estradiol 0.01 % (0.1 mg/gram) cream See Rx Instructions VAGINAL .COMPLEX Qty: 42.5 RF: 2 Primary Care Provider: Kristy Duran Referrals: Kristy Duran DO [Primary Care Provider] - 3-5 Days Disposition Disposition: Home, Self Care
[2020-11-25 20:53] VITALS: RESP 16; RESP 18
== END 2020-11-25 21:27 | disposition home or self-care (01) ==
PROVIDERS: Emergency Provider Emergency Medicine; PCP Internal Medicine
DX: R10.9 Unspecified abdominal pain (principal); R11.2 Nausea with vomiting, unspecified; I10 Essential (primary) hypertension; E11.9 Type 2 diabetes mellitus without complications; E78.00 Pure hypercholesterolemia, unspecified; E03.9 Hypothyroidism, unspecified; R19.7 Diarrhea, unspecified; Z79.82 Long term (current) use of aspirin; Z79.84 Long term (current) use of oral hypoglycemic drugs; Z87.891 Personal history of nicotine dependence; Z87.19 Personal history of other diseases of the digestive system
CPT/HCPCS: 74177; 80048; 85025; 96361; 96374; 96375; 99283; J7030; Q9967; A4216; J2405

== ENCOUNTER → 2021-02-24 07:04 | Outpatient (CLI) | payer BC, SELFPAY ==
--- NOTE | 2021-02-24 07:07 | US_ITS ---
EXAM: US ABDOMEN LIMITED, RIGHT UPPER QUADRANT CLINICAL INDICATION: LOWER ABD PAIN TECHNIQUE: Real-time ultrasound of the right upper quadrant with image documentation. This report was created using [employer] report generation technology. COMPARISON: None. FINDINGS: LIMITATIONS: Limited due to patient condition and inability to tolerate adequate compression. LIVER: Increased echogenicity of the liver is nonspecific but most commonly associated with hepatic steatosis. Focal fatty sparing adjacent to the gallbladder. No hepatic masses. GALLBLADDER: Unremarkable. No shadowing gallstone. No gallbladder wall thickening is demonstrated. No pericholecystic fluid. Negative sonographic Turner''s sign. COMMON BILE DUCT: Unremarkable as visualized. The proximal common bile duct is within normal limits for the patient''s age. PANCREAS: Echogenic pancreas suggesting fatty replacement. No pancreatic masses demonstrated. No pancreatic ductal dilatation. RIGHT KIDNEY: Unremarkable. There is no hydronephrosis. No shadowing calculus. No focal lesion or perinephric collection is demonstrated. US/Abdomen Limited IMPRESSION: Increased echogenicity of the liver is nonspecific but most commonly associated with hepatic steatosis. Electronically Signed: Clarke Morris MD (Brooks) at 9:35 EDT , Service support ,
== END ==
PROVIDERS: PCP Internal Medicine; Referring Provider Nurse Practitioner; Visit Provider Nurse Practitioner
DX: R10.30 Lower abdominal pain, unspecified (principal)
CPT/HCPCS: 76705

== ENCOUNTER → 2021-02-25 13:49 | Outpatient (CLI) | payer BC, SELFPAY ==
--- NOTE | 2021-02-25 13:57 | US_ITS ---
STUDY: ULTRASOUND OF THE FEMALE PELVIS - COMPLETE REASON FOR EXAM: Female, 65 years old. L ABD PAIN LMP: The patient is postmenopausal. TECHNIQUE: Transabdominal TECHNICAL QUALITY: Adequate. COMPARISON: None. FINDINGS: The patient is status post hysterectomy. The patient is status post right oophorectomy. The patient is status post left nephrectomy. There is no fluid in the cul-de-sac. The pre void volume of the bladder was 158 ml. US/Pelvic (Non ) IMPRESSION: Status post hysterectomy and bilateral oophorectomy. Electronically Signed: Reddy Quintero MD at 15:08 EDT , Service support ,
== END ==
PROVIDERS: PCP Internal Medicine; Referring Provider Nurse Practitioner; Visit Provider Nurse Practitioner
DX: R10.30 Lower abdominal pain, unspecified (principal)
CPT/HCPCS: 76856

== ENCOUNTER 2021-06-09 07:18 | Outpatient (CLI) | payer BC, SELFPAY ==
--- NOTE | 2021-06-09 07:19 | BI_ITS ---
MAMMOGRAPHY - BILATERAL SCREENING REASON FOR EXAM: Female, 66 years old. Routine annual screening examination. PERTINENT HISTORY: Non-contributory. TECHNIQUE: Digital bilateral breast farrah (3D mammographic acquisition) in the CC and MLO projections. 2-D mediolateral oblique (MLO) and craniocaudad (CC) views of both breasts were obtained. CAD: Full Field Digital Mammography with Computer Added Detection was performed. COMPARISON: Comparison is made with prior study dated 04/08/2020. FINDINGS: Breast Composition: The breasts are almost entirely fatty. There are no dominant masses or suspicious calcifications. Stable benign-appearing bilateral axillary lymph nodes. No other significant abnormalities are identified. There has been no significant change since the prior study. BI/SCRN MAMM (CAD)W/FARRAH BILAT IMPRESSION: Stable bilateral screening mammogram. Yearly follow-up mammogram recommended. (A) ASSESSMENT CATEGORY: BIRADS Category 2: Benign. A letter regarding these results will be sent to the patient by the facility within 30 days. Approximately 10% of breast cancers are not detected by mammography. A normal mammogram should not delay biopsy of a clinically suspicious abnormality. [id number] Electronically Signed: Reddy Quintero MD at 8:55 EST ,
== END 2021-06-09 23:59 | disposition home or self-care (01) ==
LOC: OPBI 07:18
PROVIDERS: PCP Internal Medicine; Referring Provider Nurse Practitioner Women's Health; Visit Provider Nurse Practitioner Women's Health
DX: Z12.31 Encounter for screening mammogram for malignant neoplasm of breast (principal)
CPT/HCPCS: 77063; 77067

== ENCOUNTER 2021-07-30 07:12 | Outpatient (CLI) | payer BC, SELFPAY | END 2021-07-30 23:59 | disposition home or self-care (01) | PROVIDERS: PCP Internal Medicine; Visit Provider Nurse Practitioner | DX: R00.2 Palpitations (principal) | CPT/HCPCS: 93225; 93226 ==

== ENCOUNTER 2021-10-15 18:05 | Emergency (ER) | payer BC, SELFPAY ==
[2021-10-15 18:06] VITALS: BP 158/72; PULSE 65; RESP 14; TEMP 36.2; O2SAT 99; BMI 31.1
--- NOTE | 2021-10-15 18:25 | EKG12_ITS ---
Test Reason : DYSRHYTHMIA Blood Pressure : / mmHG Vent. Rate : 064 BPM Atrial Rate : 064 BPM P-R Int : 172 ms QRS Dur : 102 ms QT Int : 432 ms P-R-T Axes : 046 -03 025 degrees QTc Int : 445 ms Normal sinus rhythm with sinus arrhythmia R/S >or = 1.0 in V1: Consider: Lead Placement, Normal Variant, Early Transition, [employer] [place], age undet ermined Confirmed by RADHA MORIN, MOHSEN ([id number]), features editor ETHEL MARMOLEJO ([id number]) on 10/19/2021 8:09:13 AM Referred By: KYRA Confirmed By:MOHSEN GARCIA MD
[2021-10-15 18:26] LABS: Bedside Glucose 150 mg/dL (74-106)
--- NOTE | 2021-10-15 18:27 | EX.ED.DYSGE1 ---
HPI History of Present Illness Chief Complaint: Dizziness Narrative Narrative: Patient with past medical history of diabetes, hypertension, hypercholesterolemia, presents with 30 to 45 minutes of feeling off. She states that she was at a restaurant and thought maybe her blood sugar was low. She drank orange juice to get her blood sugar up. She states that she does not really feel dizzy or vertiginous and may feel lightheaded but she just feels off. She has mild anxiety today but no problems in the past. She denies any chest pain or shortness of breath. She states she is not in pain anywhere. She does not have a headache. She has not had cough. She transiently got nauseated but has not had vomiting. She states she had a loose stool today. She presents mainly because she does not feel right and has not for the last 30 to 45 minutes. [facility] Medical History Abnormal cardiac CT angiography Benign essential hypertension Diverticulosis Gout History of left heart catheterization (LHC) (~03/08/19) Hypothyroidism Nodule of right lung Pure hypercholesterolemia Right bundle branch block Thyromegaly Type 2 diabetes mellitus Home Medications atorvastatin 40 mg tablet 40 mg PO QHS 01/04/19 [History Last Taken Unknown] metoprolol succinate 25 mg tablet,extended release 24 hr 25 mg PO DAILY 01/04/19 [History Last Taken 03/08/19] aspirin 81 mg tablet,delayed release (Adult Low Dose Aspirin) 81 mg PO DAILY 01/24/19 [History Last Taken 03/08/19] hydrochlorothiazide 12.5 mg tablet 12.5 mg PO DAILY 01/24/19 [History Last Taken Unknown] lisinopril 20 mg tablet 20 mg PO DAILY 01/24/19 [History Last Taken 03/08/19] ascorbic acid 125 mg-collagen, hydrolyzed 740 mg capsule (Collagen Plus Vitamin C) 1 cap PO DAILY 03/10/20 [History Last Taken Unknown] multivitamin 1 tab PO DAILY 03/10/20 [History Last Taken Unknown] ascorbate calcium (vitamin C) 500 mg tablet 500 mg PO DAILY 06/01/21 [History Last Taken Unknown] estradiol 0.5 mg tablet 0.25 mg PO .QOD #60 tabs 06/01/21 [Rx Last Taken Unknown] metformin 500 mg tablet 1,000 mg PO BID 06/01/21 [History Last Taken Unknown] zinc 50 mg tablet 50 mg PO DAILY 06/01/21 [History Last Taken Unknown] Allergy/AdvReac Type Severity Reaction Status Date / Time rosuvastatin [From Crestor] AdvReac Unknown Unknown Verified 10/15/21 18:06 Penicillins AdvReac Other Verified 10/15/21 18:06 Family History Mother Abdominal aortic aneurysm (AAA) Sister Hypertension Diabetes Father CAD (coronary artery disease) Surgical History History of appendectomy History of dilatation and curettage History of total hysterectomy Social History household members: spouse number of children: 1 current occupational status: employed current occupation: senior data warehouse developer, customer service at [employer] history of recent travel: No sexually active: Yes Smoking Status: Former smoker alcohol intake: current alcohol intake frequency: holidays/special occasions only substance use type: does not use caffeine: Yes Type: carbonated beverages Number of servings: 1 what type of physical activity do you participate in: none seatbelt use: always do you feel safe at home: Yes additional social history: - kyra PISANO Narrative Constitutional: No fever, no chills. HEENT: No sore throat. No neck pain. No loss of vision. No rhinorrhea. Cardiovascular: No chest pain. No palpitations. No pedal edema. Respiratory: No cough, no shortness of breath. Abdominal: No abdominal pain. No nausea. No vomiting. Genitourinary: No dysuria. No hematuria. Musculoskeletal: No myalgias. No arthralgias. Neurologic: No headaches. No dizziness. Questionable lightheadedness. Feels off. No paresthesias. Skin: No rash. No change in color. Psychiatric: No depression. Mild anxiety regarding the way she is feeling. EXAM Physical Exam Narrative Exam Narrative: Afebrile. Vital signs noted. HEENT: Normocephalic. Atraumatic. PERRL, EOMI. Neck soft and supple. No point tenderness or step off. Cardiovascular: Regular rate and rhythm. No murmurs, rubs, or gallops appreciated. Respiratory: No tachypnea. Lungs clear to auscultation bilaterally. Gastrointestinal: Abdomen soft, nontender, with normoactive bowel sounds. No rebound or guarding. Neurological: Awake. Alert. Oriented x3. Nonfocal, nonlateralizing. DTRs equal and symmetric. Skin: No rash. Normal color. No pallor. Musculoskeletal: No pedal edema. Full range of motion extremities. Const Vital Signs: 10/15/21 18:06 10/15/21 18:15 10/15/21 18:53 Temperature 97.2 F L Temperature Source Temporal Pulse Rate 65 Pulse Rate [Lying] 65 Pulse Rate [Sitting (for 1 minute prior to obtaining)] 70 Pulse Rate [Standing (for 1 minute prior to obtaining)] 74 Respiratory Rate 14 Respiratory Effort Normal Respiratory Pattern Normal Blood Pressure 158/72 H Blood Pressure [Lying] 140/65 H Blood Pressure [Sitting (for 1 minute prior to obtaining)] 147/74 H Blood Pressure [Standing (for 1 minute prior to obtaining)] 157/74 H Blood Pressure Mean 100 Blood Pressure Mean [Lying] 90 Blood Pressure Mean [Sitting (for 1 minute prior to obtaining)] 98 Blood Pressure Mean [Standing (for 1 minute prior to obtaining)] 101 Pulse Ox 99 Oxygen Delivery Method Room Air 10/15/21 20:35 10/15/21 21:24 Temperature Temperature Source Pulse Rate 62 60 Pulse Rate [Lying] Pulse Rate [Sitting (for 1 minute prior to obtaining)] Pulse Rate [Standing (for 1 minute prior to obtaining)] Respiratory Rate 16 16 Respiratory Effort Respiratory Pattern Blood Pressure 112/60 150/63 H Blood Pressure [Lying] Blood Pressure [Sitting (for 1 minute prior to obtaining)] Blood Pressure [Standing (for 1 minute prior to obtaining)] Blood Pressure Mean 77 92 Blood Pressure Mean [Lying] Blood Pressure Mean [Sitting (for 1 minute prior to obtaining)] Blood Pressure Mean [Standing (for 1 minute prior to obtaining)] Pulse Ox 98 97 Oxygen Delivery Method Room Air Room Air MDM MDM MDM Narrative Medical decision making narrative: Comprehensive work-up was pursued. Her initial blood sugar was 150 and appropriately elevated. EKG was interpreted by myself and demonstrates normal sinus rhythm with sinus arrhythmia at 64 bpm without ectopy otherwise and no acute ST changes. No STEMI. She has an elevated white count of 19.9, but she has had it high in the past and states that she was recently treated for gouty arthritis exacerbation. Hemoglobin normal at 12.6, hematocrit 38.6. Potassium slightly low at 3.4 which I think is nonspecific. BUN of 25 with creatinine 1.1. Initial high-sensitivity troponin negative at less than 3. Repeat is still normal at 4 for a delta less than 7. I feel she can be discharged safely home with follow-up. Her urinalysis was negative for ketones and WBCs 5-10, but she is not having dysuria. Hence, I do feel that antibiotics are not indicated. CT of the brain shows no acute process. Chest x-ray interpreted by myself shows no evidence of infiltrate, no evidence of pneumothorax. She states she feels improved. At this point in time, I do feel she can be discharged safely home with follow-up. Return instructions were reviewed. She may have had a transient drop in her blood glucose, but she and her state that she drank orange juice and 7-Up prior to coming. Disposition is discharged home in stable condition. Lab Data Attestation: I reviewed the patient's lab results. Labs: Laboratory Results - last 24 hr 10/15/21 10/15/21 10/15/21 18:22 18:45 18:45 WBC 19.9 H RBC 4.48 Hgb 12.6 Hct 38.6 MCV 86.2 MCH 28.1 MCHC 32.6 RDW Std Deviation 42.9 RDW Coeff of Lucio 13.7 Plt Count 352 MPV 10.0 Sodium 138 Potassium 3.4 L Chloride 103 Carbon Dioxide 25.0 Anion Gap 10 BUN 25 H Creatinine 1.11 H Estim Creat Clear Calc 44.25 Est GFR (MDRD) Af Amer 63 Est GFR (MDRD) Non-Af 52 L BUN/Creatinine Ratio 22.5 H Glucose 156 H Calcium 9.5 Total Bilirubin 0.30 AST 25 ALT 28 Alkaline Phosphatase 115 Troponin I High Sens < 3 L Total Protein 8.0 Albumin 3.7 Globulin 4.3 H Albumin/Globulin Ratio 0.9 Urine Color Urine Clarity Urine pH Ur Specific [place] Urine Protein Urine Glucose (UA) Urine Ketones Urine Occult Blood Urine Nitrite Urine Bilirubin Urine Urobilinogen Ur Leukocyte Esterase Urine RBC Urine WBC Ur Squamous Epith Cells Urine Bacteria Urine Mucus POC Glucose 150 H 10/15/21 10/15/21 20:08 20:54 WBC RBC Hgb Hct MCV MCH MCHC RDW Std Deviation RDW Coeff of Lucio Plt Count MPV Sodium Potassium Chloride Carbon Dioxide Anion Gap BUN Creatinine Estim Creat Clear Calc Est GFR (MDRD) Af Amer Est GFR (MDRD) Non-Af BUN/Creatinine Ratio Glucose Calcium Total Bilirubin AST ALT Alkaline Phosphatase Troponin I High Sens 4 Total Protein Albumin Globulin Albumin/Globulin Ratio Urine Color Straw Urine Clarity Clear Urine pH 6.0 Ur Specific [place] 1.010 Urine Protein Negative Urine Glucose (UA) Normal Urine Ketones Negative Urine Occult Blood Negative Urine Nitrite Negative Urine Bilirubin Negative Urine Urobilinogen Normal Ur Leukocyte Esterase 25 H Urine RBC 0 SEEN Urine WBC 5-10 SEEN Ur Squamous Epith Cells 0-5 SEEN Urine Bacteria 1+ Urine Mucus 0 SEEN POC Glucose Radiography Diagnostic Testing: Clinical Impression(s) from Imaging Studies Chest X-Ray 10/15/21 18:50 IMPRESSION: No radiographic evidence of acute cardiopulmonary disease. Electronically Signed: Brennan Hernandez MD at 19:35 EDT , Brain CT 10/15/21 19:07 IMPRESSION: Negative head/brain CT without intravenous contrast. Electronically Signed: Brennan Hernandez MD at 20:04 EDT , Discharge Plan Triage Chief Complaint: Dizziness ED Provider: Jaosn Lovell Dx/Rx/DC Orders Clinical Impression: Light headed, Malaise Instructions: ED Dizziness, Uncertain Cause, ED Near-Fainting, Uncertain Cause Prescriptions: No Action hydrochlorothiazide 12.5 mg tablet 12.5 mg PO DAILY lisinopril 20 mg tablet 20 mg PO DAILY aspirin [Adult Low Dose Aspirin] 81 mg tablet,delayed release (DR/EC) 81 mg PO DAILY metoprolol succinate 25 mg tablet extended release 24 hr 25 mg PO DAILY atorvastatin 40 mg tablet 40 mg PO QHS metformin 500 mg tablet 1,000 mg PO BID multivitamin Tablet 1 tab PO DAILY ascorbic acid 125 mg-collagen, hydrolyzed 740 mg capsule 125-740 mg capsule 1 cap PO DAILY zinc 50 mg tablet 50 mg PO DAILY ascorbate calcium (vitamin C) 500 mg tablet 500 mg PO DAILY estradiol 0.5 mg tablet 0.25 mg PO .QOD Qty: 60 4RF Primary Care Provider: Kristy Duran Referrals: Kristy Duran DO [Primary Care Provider] - 3-5 Days if not improving Disposition Disposition: Home, Self Care
--- NOTE | 2021-10-15 18:50 | RAD_ITS ---
EXAM: XR CHEST, 1 VIEW CLINICAL INDICATION: CAD TECHNIQUE: Frontal view of the chest. This report was created using [employer] report generation technology. COMPARISON: 02/26/2019 FINDINGS: LUNGS AND PLEURAL SPACES: Unremarkable. No consolidation or edema. No pneumothorax. No effusion. HEART: Unremarkable. Cardiac silhouette not enlarged. MEDIASTINUM: Central airways and mediastinal contour are unremarkable. BONES/JOINTS: Unremarkable. SOFT TISSUES: Unremarkable. RAD/Chest 1 View (Portable) IMPRESSION: No radiographic evidence of acute cardiopulmonary disease. Electronically Signed: Brennan Hernandez MD at 19:35 EDT ,
[2021-10-15] MEDS: 0.9% Normal Saline 1,000 ML 1000 ML IV (18:51)
[2021-10-15 18:53] VITALS: BP 140/65; BP 147/74; BP 157/74; PULSE 65; PULSE 70; PULSE 74
[2021-10-15 18:53] LABS: Hematocrit 38.6 % (37-47); Hemoglobin 12.6 g/dL (12.0-15.0); Mean Corp Hgb Conc 32.6 g/dL (32-36); Mean Corpuscular Hgb 28.1 pg (27.0-32.0); Mean Corpuscular Volume 86.2 fL (81-99); Platelet Count 352 K/mm3 (150-450); RBC Distribution Width CV 13.7 % (11.6-14.6); RBC Distribution Width SD 42.9 fl (35.1-43.9); Red Blood Count 4.48 M/mm3 (4.2-5.4); White Blood Count 19.9 K/mm3 (4.4-11.0)
--- NOTE | 2021-10-15 19:07 | CT_ITS ---
EXAM: CT HEAD WITHOUT INTRAVENOUS CONTRAST CLINICAL INDICATION: Dizzziness TECHNIQUE: Multiple axial images were obtained of the head without intravenous contrast. This CT exam was performed using one or more of the following dose reduction techniques: automated exposure control, adjustment of the mA and/or kV according to patient size, and/or use of iterative reconstruction technique. This report was created using Ribbit report generation technology. COMPARISON: None. FINDINGS: BRAIN AND EXTRA-AXIAL SPACES: Unremarkable. No intra- or extra-axial hemorrhage. No evidence of acute infarct. No intracranial mass or mass effect. There is preservation of the wyatt/white matter interface. Posterior fossa structures are unremarkable. Ventricles are appropriate for age. No hydrocephalus. Basal cisterns are patent. BONES/JOINTS: Unremarkable. No discrete lytic or blastic abnormalities. SINUSES: Unremarkable as visualized. Clear. MASTOID AIR CELLS: Unremarkable. Clear. ORBITS: Visualized globes, extraocular muscles, optic nerves and retrobulbar fat appear unremarkable. CT/Brain/Head without Contrast IMPRESSION: Negative head/brain CT without intravenous contrast. Electronically Signed: Brennan Hernandez MD at 20:04 EDT ,
[2021-10-15 19:15] LABS: ALB/GLOB Ratio 0.9 RATIO (0.9-2.4); AST(SGOT) 25 U/L (15-37); Alanine Aminotransfer ALT/SGPT 28 U/L (13-56); Albumin, Serum 3.7 g/dL (3.2-5.0); Alkaline Phosphatase 115 U/L (45-117); Anion Gap 10 (5-15); BUN 25 mg/dL (7-18); BUN/Creat Ratio 22.5 RATIO (10-20); Calcium,Total 9.5 mg/dL (8.5-10.1); Chloride 103 mmol/L (98-107); Creatinine, Serum 1.11 mg/dL (0.55-1.02); EST Glomerular Filtration Rate 52 mL/min (>60); Est Glom Filt Rate - Afr Amer 63 mL/min (>60); Estimated Creatinine Clearance 44.25 ml/min; Globulin 4.3 g/dL (2.2-4.2); Glucose 156 mg/dL (74-106); Potassium 3.4 mmol/L (3.5-5.1); Sodium Level 138 mmol/L (136-145); Troponin-I HS (w/2H Reflex) < 3 pg/mL (3.0-54.0)
[2021-10-15 20:12] LABS: Mucous, Urine 0 SEEN /hpf (<or=2+); Red Blood Cells-Urine 0 SEEN /hpf (0-5)
[2021-10-15 20:13] LABS: Color, Urine Straw (Yellow); Glucose, Dipstick Normal (Normal); Ketone-Dipstick Negative (Negative); Leukocyte Esterase-Dipstick 25 /ul (Negative); Nitrite-Dipstick Negative (Negative); Occult Blood-Urine Negative /ul (Negative); Protein-Dipstick Negative (Negative); Urine Bilirubin Dipstick Negative (Negative); Urine Clarity Clear (Clear); Urine Urobilinogen Normal (Normal)
[2021-10-15 20:24] LABS: Bacteria 1+ /hpf (None Seen); Squamous Epithelial Cells - UA 0-5 SEEN /hpf (5-10); White Blood Cells 5-10 SEEN /hpf (0-5)
[2021-10-15 20:35] VITALS: BP 112/60; PULSE 62; RESP 16; O2SAT 98
[2021-10-15 20:50] LABS: Reflex Troponin-HS? (from REC) Y
[2021-10-15 21:21] LABS: Troponin-I HS 4 pg/mL (3.0-54.0)
[2021-10-15 21:24] VITALS: BP 150/63; PULSE 60; RESP 16; O2SAT 97
== END 2021-10-15 22:24 | disposition home or self-care (01) ==
PROVIDERS: Emergency Provider Emergency Medicine; PCP Internal Medicine; Visit Provider Emergency Medicine
DX: R42 Dizziness and giddiness (principal); E11.9 Type 2 diabetes mellitus without complications; I49.8 Other specified cardiac arrhythmias; E78.00 Pure hypercholesterolemia, unspecified; I10 Essential (primary) hypertension; Z87.891 Personal history of nicotine dependence; R53.81 Other malaise; E03.9 Hypothyroidism, unspecified; M10.9 Gout, unspecified
CPT/HCPCS: 70450; 71045; 80053; 81001; 82962; 84484; 85027; 87428; 93005; 96360; 99284; J7030; A4216

== ENCOUNTER 2022-01-05 16:35 | Outpatient (CLI) | payer BC, SELFPAY ==
[2022-01-05] MEDS: 0.9% Saline Lock 10 ML Syringe IV ×3 (16:52→17:11)
[2022-01-05 16:54] VITALS: BP 104/72; PULSE 84; RESP 18; TEMP 37.3; O2SAT 99; BMI 29.6
[2022-01-05] MEDS: BEBTELOVIMAB 175 MG/2 ML VIAL IV (17:07)
[2022-01-05 17:36] VITALS: BP 104/49; PULSE 79; RESP 18; TEMP 37; O2SAT 98
[2022-01-05 17:55] VITALS: BP 113/58; PULSE 80; RESP 18; TEMP 36.8; O2SAT 100
== END 2022-01-05 18:07 | disposition home or self-care (01) ==
LOC: MS3OUT 16:35 → MS2 16:36
PROVIDERS: PCP Internal Medicine; Referring Provider Nurse Practitioner Adult Health; Visit Provider Nurse Practitioner Adult Health
DX: Z23 Encounter for immunization (principal); U07.1 COVID-19
CPT/HCPCS: M0222; Q0222; A4216

== ENCOUNTER 2022-04-19 10:00 | Outpatient (RCR) | payer BC, SELFPAY ==
--- NOTE | 2022-03-18 08:14 | HP.PTEVAL_ITS ---
Patient's Visit Information CHARLENE CLEMENTS is a 66 year old F referred to Physical Therapy by Dr. Kristy Duran DO with a diagnosis of LBP with radiculopathy. Date of Evaluation: 03/18/22 Physical Therapist: Sunny Blank, SHAHIDT, OCS, CSCS - Visit Plan Frequency: 2x /Week Duration: 4-6 Weeks Plan: 2x/week for 4-6 weeks for. 1. rollout and stretch psoas and quads to HEP. 2. NS focus with mat strength to HEP, LB ROM to yoga stretches as able. 3. functional standing NS strength and ex to HEP. 4. MH, flexion mobs to LB as needed. - Subjective Had pain standing up too long for months or walking too much. Gets scitica down R leg laterally to ankle. Somewhat goes away when she sits down. Got prednisone but does not like it. Took it for first 6 days then did not help. Gets numness and tingling in r LE with walking and standing. sitting alleviates it. Employed sitting all day long and can still do this. OK getting up from chair. Activities normal, just painful at home. Bad days has to baby R LE. No exercises - Pain R LE Pain Intensity (Out of 10): 1 Pain Intensity Range: 0, 8 - Objective Walks with R antalgia I into clinic. Trasnfers I. Tightness obvious in psoas B and more painful R LE to lie flat than with knees bent. Hip and knee and ankle aROM WFL and symmetrical. - LITZY. - FADDIR. - hip scouring. - SLump. - SLR. LB aROM extension and flexion mod limited, painful extension. SB min limited and R painful. reflexes 2/3 patella and achilles B. sensation LE WNL to gross light touch. Strength LE ankles and knees 4/5 and hips 4-/5 without myotomal problems. - Balance/Special Test Scores Oswestry Low Back Score: 15 - Goals Goal 1:: I appropr HEP to limit future problems wiht pain Goal Time Frame: 4-6 Weeks Goal 2:: Pain in R LE and LB 75% improved to 2/10 at worst Goal Time Frame: 4-6 Weeks Goal 3:: Able to walk at grocery store without increased pain Goal Time Frame: 4-6 Weeks Goal 4:: oswestry score 5 or better Goal Time Frame: 4-6 Weeks - Rehabilitation Potential Physical Therapy Diagnosis: Liekly stenotic problem in LB casuing symptoms and limiting walking. Rehabilitation Potential: Fair - Anticipated Interventions Patient/Client Instruction: Educate patient on: Condition, Plan of Care For the Purpose of:: To decrease pain, To decrease swelling/inflammation, To increase ROM, To improve muscle performance and motor function, To increase tolerance to activity/condition/position, To improve gait and locomotor functions Therapeutic Exercise to Include: Strength training, Postural training, Flexibilty training, Gait and locomotor training, Passive ROM, Active ROM, Dynamic Lumbar Stabilization For the Purpose of:: To decrease pain, To increase ROM, To improve nutrient delivery to tissue, To improve muscle performance and motor function, To increase tolerance to activity/condition/position, To improve ability of physical actions for home/community/work/leisure, To improve gait and locomotor functions Manual Therapy Techniques to Include: Mobilization, Passive ROM, Soft tissue mobilization For the Purpose of:: To decrease pain, To increase ROM Thermo therapy (hot pack): Yes For the Purpose of:: To increase ROM Thank you for the opportunity to evaluate your patient. For Medicare and Medicare HMO plans, please review the plan of care and approve it. It will need to be FAXED BACK to us at [phone] for Medicare purposes. For Medicare only, by signing this I certify the plan of care. Please let me know if there are questions or concerns regarding this plan of care. Physician Signature:____ Date:
--- NOTE | 2022-05-30 07:54 | HP.PTDCNRP_ITS ---
CHARLENE CLEMENTS was seen in my office for initial evaluation on 03/18/22. The following Plan of Care was established for this patient: Initial Frequency: 2x /Week Initial Duration: 4-6 Weeks Patient/Client Instruction: Educate patient on: Condition, Plan of Care For the Purpose of:: To decrease pain, To decrease swelling/inflammation, To increase ROM, To improve muscle performance and motor function, To increase tolerance to activity/condition/position, To improve gait and locomotor functions Therapeutic Exercise to Include: Strength training, Postural training, Flexibilty training, Gait and locomotor training, Passive ROM, Active ROM, Dynamic Lumbar Stabilization For the Purpose of:: To decrease pain, To increase ROM, To improve nutrient delivery to tissue, To improve muscle performance and motor function, To inc rease tolerance to activity/condition/position, To improve ability of physical actions for home/community/work/leisure, To improve gait and locomotor functions Manual Therapy Techniques to Include: Mobilization, Passive ROM, Soft tissue mobilization For the Purpose of:: To decrease pain, To increase ROM Thermo therapy (hot pack): Yes For the Purpose of:: To increase ROM This patient was last seen in our office 04/19/22. Pertinent comments regarding their Physical therapy will appear below: Pt seen 6 visits of 7 visit approval but did not attend the last visit and recheck. She was doing well and feeling much better at her last attended visit. At this point, it has been over 4 weeks and I will discontinue due to nonattendance. At this point I will be discontinuing this patient from physical therapy. I would be happy to see this patient again in the future if found appropriate by the physician. Thank you! Sunny Blank, DPT, OCS, CSCS Balance/Gait/Functional tests - Balance/Special Test Scores Oswestry Low Back Score: 15
== END 2022-04-19 19:00 | disposition home or self-care (01) ==
LOC: PT 10:00
PROVIDERS: PCP Internal Medicine; Referring Provider Internal Medicine; Visit Provider Internal Medicine
DX: M54.16 Radiculopathy, lumbar region (principal)
CPT/HCPCS: 97110; 97140; 97161

== ENCOUNTER → 2022-07-04 | Outpatient (CLI) | payer BC, SELFPAY ==
--- NOTE | 2022-07-04 08:49 | BI_ITS ---
MAMMOGRAPHY - BILATERAL SCREENING 3-D TOMOSYNTHESIS REASON FOR EXAM: Female, 67 years old. Routine screening PERTINENT HISTORY: Previous reduction surgery. TECHNIQUE: 2-D mammograms and 3-D Tomosynthesis of the breast (s) were performed. CAD was performed. COMPARISON: 04/08/2020 FINDINGS: The breast composition is almost entirely fat. Scattered benign calcifications are seen. No dense spiculated masses or suspicious microcalcifications are identified. No architectural distortion is identified. There is no skin thickening or retraction. There has been no significant change since the prior study. BI/SCRN MAMM (CAD)W/FARRAH BILAT IMPRESSION: No mammographic signs of malignancy. Routine yearly mammograms recommended. ASSESSMENT CATEGORY: BIRADS Category 1: Negative. A letter regarding these results will be sent to the patient by the facility within 30 days. FOLLOW UP RECOMMENDATION: Yearly follow up mammogram recommended. (A) Approximately 10% of breast cancers are not detected by mammography. A normal mammogram should not delay biopsy of a clinically suspicious abnormality. Electronically Signed: William Wilkerson MD at 9:31 EDT ,
== END | disposition home or self-care (01) ==
LOC: OPBI 08:46
PROVIDERS: PCP Internal Medicine; Visit Provider Nurse Practitioner Women's Health
DX: Z12.31 Encounter for screening mammogram for malignant neoplasm of breast (principal)
CPT/HCPCS: 77063; 77067

== ENCOUNTER → 2023-07-17 | Outpatient (CLI) | payer BC, SELFPAY ==
--- NOTE | 2023-07-17 15:56 | BI_ITS ---
MAMMOGRAPHY - BILATERAL SCREENING REASON FOR EXAM: Female, 68 years old. Routine annual screening examination. PERTINENT HISTORY: Non-contributory. History of prior bilateral breast reduction surgery. TECHNIQUE: Digital bilateral breast farrah (3D mammographic acquisition) in the CC and MLO projections. 2-D mediolateral oblique (MLO) and craniocaudad (CC) views of both breasts were obtained. CAD: Full Field Digital Mammography with Computer Added Detection was performed. COMPARISON: Comparison is made with prior study dated July 04, 2022 and June 09, 2021. FINDINGS: Breast Composition: The breasts are almost entirely fatty. There are no dominant masses or suspicious calcifications. Stable benign-appearing bilateral axillary lymph nodes. No other significant abnormalities are identified. There has been no significant change since the prior study. BI/SCRN MAMM (CAD)W/FARRAH BILAT IMPRESSION: Stable bilateral screening mammogram. Yearly follow-up mammogram recommended. (A) ASSESSMENT CATEGORY: BIRADS Category 2: Benign. A letter regarding these results will be sent to the patient by the facility within 30 days. Approximately 10% of breast cancers are not detected by mammography. A normal mammogram should not delay biopsy of a clinically suspicious abnormality. [id number] Electronically Signed: Reddy Quintero MD at 16:42 EDT ,
== END | disposition home or self-care (01) ==
LOC: OPBI 15:56
PROVIDERS: PCP Internal Medicine; Referring Provider Nurse Practitioner Women's Health; Visit Provider Nurse Practitioner Women's Health
DX: Z12.31 Encounter for screening mammogram for malignant neoplasm of breast (principal)
CPT/HCPCS: 77063; 77067

== ENCOUNTER → 2023-08-10 | Outpatient (CLI) | payer BC, SELFPAY | END | disposition home or self-care (01) | LOC: PSN 13:18 | PROVIDERS: PCP Internal Medicine; Referring Provider Internal Medicine; Visit Provider Internal Medicine | DX: R00.2 Palpitations (principal) | CPT/HCPCS: 93225; 93226 ==

== ENCOUNTER → 2024-08-28 | Outpatient (CLI) | payer OTHER, SELFPAY ==
--- NOTE | 2024-08-28 14:45 | BI_ITS ---
EXAM: SCRN MAMM (CAD)W/FARRAH BILAT DATE: 08/28/2024 CLINICAL HISTORY: F, Age 69 y/o , SCREENING MAMMOGRAM FOR BREAST CANCER BREAST CANCER RISK ASSESSMENT: Not reported TECHNIQUE: Bilateral screening digital breast tomosynthesis with 2D and 3D images. Computer aided detection. COMPARISON: Prior exam(s) were compared FINDINGS: TISSUE DENSITY: The breast tissue is almost entirely fatty. Bilateral Breast Mammographic Findings: No suspicious masses, calcifications or other abnormalities are identified. BI/SCRN MAMM (CAD)W/FARRAH BILAT IMPRESSION: OVERALL FINAL ASSESSMENT: BIRADS 1 NEGATIVE RECOMMENDATION: Routine annual follow-up in 1 Year A letter with findings and recommendations will be mailed to the patient. Reading Location: [id number]
== END | disposition home or self-care (01) ==
PROVIDERS: PCP Internal Medicine; Referring Provider Nurse Practitioner Women's Health; Visit Provider Nurse Practitioner Women's Health
DX: Z12.31 Encounter for screening mammogram for malignant neoplasm of breast (principal)
CPT/HCPCS: 77063; 77067

== ENCOUNTER 2024-08-30 12:12 | Emergency (ER) | payer OTHER, SELFPAY ==
[2024-08-30 12:13] VITALS: BP 140/78; PULSE 82; RESP 18; TEMP 36.4; O2SAT 100; BMI 31.4
[2024-08-30 12:45] LABS: Absolute Lymphocyte Count 2.61 X10^3/uL (0.83-4.51); Absolute Neutrophil Count 4.5 X10^3/uL (2.0-7.7); Basophil# 0.04 X10^3/uL; Basophil% 0.5 % (0-1); Eosinophil# 0.26 X10^3/uL; Eosinophils% 3.1 % (0-5); Hematocrit 41.2 % (37-47); Hemoglobin 13.3 g/dL (12.0-15.0); Lymphocyte # 2.61 X10^3/ul (0.83-4.51); Lymphocyte % 31.6 % (19-41); Mean Corp Hgb Conc 32.3 g/dL (32-36); Mean Corpuscular Hgb 27.9 pg (27.0-32.0); Mean Corpuscular Volume 86.4 fL (81-99); Mean Platelet Vol. 9.3 fl (6.2-12.0); Monocyte# 0.85 X10^3/uL; Monocyte% 10.3 % (0-10); NRBC Flagged by Analyzer 0 % (0-5); Neutrophil # 4.47 X10^3/uL (2.7-7.7); Neutrophil % 54.1 % (47-70); Platelet Count 311 K/mm3 (150-450); RBC Distribution Width CV 14.3 % (11.6-14.6); RBC Distribution Width SD 45.2 fl (35.1-43.9); Red Blood Count 4.77 M/mm3 (4.2-5.4); White Blood Count 8.3 K/mm3 (4.4-11.0)
--- NOTE | 2024-08-30 12:53 | RAD_ITS ---
PROCEDURE: CHEST 1 VIEW (PORTABLE) 08/30/2024 REASON FOR EXAM: CHEST PAIN TECHNIQUE: Frontal view of the chest. COMPARISON: Prior chest x-ray of 10/15/2021. RAD/Chest 1 View (Portable) IMPRESSION: Lungs appear clear of acute disease, and unchanged. No pleural effusion or pneumothorax is evident. The cardiomediastinal silhouette is stable, without evidence of cardiomegaly. No significant interval osseous change is seen. Prominent bilateral acromiocla vicular joint degenerative changes are again noted. No evidence of acute cardiopulmonary disease. Reading Location: [place] [id number]
--- NOTE | 2024-08-30 13:09 | CT_ITS ---
PROCEDURE: CTA CHST, ABD, PEL W AND/OR WO 08/30/2024 REASON FOR EXAM: CHEST ABD BACK PAIN, DISSECTION STUDY TECHNIQUE: Chest abdomen and pelvis CT with intravenous contrast. Coronal and Sagittal reconstruction series were provided. One or more dose reduction techniques were used (e.g., Automated exposure control, adjustment of the mA and/or kV according to patient size, use of iterative reconstruction technique. PATIENT PREPARATION: Per protocol ORAL CONTRAST TYPE: None. AMOUNT: mL CONTRAST: Omnipaque 350 VOLUME: 100 mL Not Provided Gauge IV COMPARISON: None FINDINGS: CHEST: Lines and tubes: None Mediastinum: No suspicious hilar or mediastinal adenopathy. Thyroid gland is unremarkable. Esophagus is nondilated. Heart: Normal heart size. Moderate coronary artery calcifications. Thoracic Aorta: No thoracic aortic aneurysm or dissection. Main pulmonary arteries normal in diameter. No evidence of pulmonary embolism. Lungs and Airways: Central airways are patent without endobronchial lesions. Patchy opacities in the lung base, compatible with atelectasis. 4 mm right lower lobe subsolid nodule (series 2, image 54) otherwise, no suspicious pulmonary nodules. No focal consolidation. No pneumothorax. No pleural effusion. Bones: No acute osseous abnormality. No suspicious osseous lesions. Mild degenerative changes of the thoracic spine. Other: Chest wall is unremarkable. ABDOMEN AND PELVIS: Liver: Mild hepatomegaly, craniocaudal length 17.2 cm. Homogeneous attenuation. No focal lesion. Gallbladder: No ductal dilation. Gallbladder is unremarkable. Spleen: No splenomegaly. Pancreas: Normal size without evidence of mass surrounding inflammation or ductal dilation. Adrenals: Unremarkable. Kidneys: Homogeneous enhancement and normal size bilaterally. No suspicious mass. No calculi or hydronephrosis. Bladder: Urinary bladder is unremarkable. Reproductive Organs: No pelvic mass Bowel: Stomach is unremarkable. No bowel dilation or wall thickening. Moderate colonic stool. Appendix is not visualized. Vasculature: Mild atherosclerotic calcification of the abdominal aorta, without evidence of dissection, thrombosis or aneurysm. The aortoiliac branches are within normal limits of caliber and patency. The celiac, SMA, bilateral renal arteries are unremarkable. Peritoneum / Retroperitoneum: No ascites. No pneumoperitoneum. Bones: No acute osseous abnormality. Degenerative changes of the lumbar spine. Soft tissues are unremarkable. CT/CTA Chst, Abd, Pel W and/or WO IMPRESSION: 1. Scattered atherosclerotic calcification, without evidence of dissection, thr ombosis or aneurysm. 2. No acute findings in the chest, abdomen and pelvis. 3. 4 mm right lower lobe indeterminate subsolid nodule. Reading Location: [facility]
[2024-08-30 13:21] LABS: Anion Gap 12 (5-15); BUN 23 mg/dL (4-19); BUN/Creat Ratio 22.1 RATIO (10-20); Calcium,Total 9.4 mg/dL (7.6-11.0); Carbon Dioxide 26.6 mmol/L (21.0-32.0); Chloride 103 mmol/L (98-108); Creatinine, Serum 1.06 mg/dL (0.70-1.20); EST Glomerular Filtration Rate 57 (>60); Glucose 120 mg/dL (70-99); Potassium 3.8 mmol/L (3.3-5.1); Sodium Level 141 mmol/L (133-145); Troponin T High Sensitivity 6 ng/L (<=14)
[2024-08-30 13:31] VITALS: BP 114/61; PULSE 73; RESP 15; O2SAT 98
[2024-08-30 13:38] LABS: AST(SGOT) 20 U/L (<=31); Alanine Aminotransfer ALT/SGPT 18 U/L (<=34); Albumin, Serum 4.1 g/dL (3.4-4.8); Alkaline Phosphatase 102 U/L (35-104); Bilirubin, Direct 0.13 mg/dL (0.00-0.30); Globulin 3.4 g/dL (2.2-4.2); Lipase 87 U/L (13-75); Protein, Total 7.5 g/dL (5.9-8.4); Total Bilirubin 0.31 mg/dL (0.00-1.30)
[2024-08-30 15:00] VITALS: BP 126/61; PULSE 82; RESP 16; O2SAT 98
[2024-08-30 15:07] LABS: Troponin T High Sens 2 HR 7 ng/L (<=14)
--- NOTE | 2024-08-30 15:19 | EDS_ITS ---
HPI History of Present Illness Chief Complaint: Chest Pain Informant: patient Narrative Narrative: Patient is a 69-year-old female with history of hypothyroidism, type 2 diabetes mellitus, hypertension presenting from [facility] Medical History Skin cancer Bilateral carpal tunnel syndrome Hidradenitis Right bundle branch block Gout Diverticulosis Abnormal stress test Hypothyroidism Thyromegaly Type 2 diabetes mellitus Nodule of right lung Pure hypercholesterolemia Abnormal cardiac CT angiography Benign essential hypertension Home Medications ?Medication ?Instructions ?Recorded ?Last Taken ?Type atorvastatin 40 mg tablet 40 mg PO QHS 01/04/19 Unknow n History hydrochlorothiazide 12.5 mg tablet 12.5 mg PO DAILY Unknown History levothyroxine 25 mcg tablet 25 mcg PO DAILY 08/29/23 U nknown History lisinopril 40 mg tablet 40 mg PO DAILY 09/14/23 Unkn own History metformin 500 mg tablet 1,000 mg PO DAILY 09/14/23 U nknown History metoprolol succinate 50 mg 50 mg PO DAILY #90 tabs Unknown Rx tablet,extended release 24 hr estradiol 0.5 mg tablet 0.25 mg (1/2 x 0.5 mg) PO .Q OD #60 07/22/24 Unknown Rx tabs semaglutide 14 mg tablet (Rybelsus) 14 mg PO QDAY 11/15 Unknown History Allergy/AdvReac Type Severity Reaction Status Date / Time rosuvastatin (From Crestor) AdvReac Unknown Unknown Verified 08/30/24 12:12 Penicillins AdvReac Other Verified 08/30/24 12:12 Family History Mother Abdominal aortic aneurysm (AAA) Sister Hypertension Diabetes Father CAD (coronary artery disease) Diabetes Atrial fibrillation Surgical History Hx of breast reduction, elective History of left heart catheterization (LHC) (~03/08/19) History of total hysterectomy History of dilatation and curettage History of appendectomy Social History household members: spouse number of children: 1 current occupational status: employed current occupation: datawarehouse developer, customer service at [employer] history of recent travel: No sexually active: Yes Smoking Status: Former smoker alcohol intake: never substance use type: does not use caffeine: Yes Type: carbonated beverages Number of servings: 2 what type of physical activity do you participate in: none seatbelt use: always do you feel safe at home: Yes additional social history: - kyra EXAM Physical Exam Const Vital Signs: 08/30/24 12:13 08/30/24 12:18 08/30/24 13:31 Temperature 97.6 F L Temperature Source Temporal Pulse Rate 82 73 Respiratory Rate 18 15 Respiratory Effort Blood Pressure 140/78 H 114/61 Blood Pressure Mean 98 78 Pulse Ox 100 98 Oxygen Delivery Method Room Air Room Air 08/30/24 13:31 08/30/24 15:00 Temperature Temperature Source Pulse Rate 82 Respiratory Rate 16 Respiratory Effort Normal Non-Labored Blood Pressure 126/61 H Blood Pressure Mean 82 Pulse Ox 98 Oxygen Delivery Method Room Air MDM MDM Lab Data Labs: Laboratory Results - last 24 hr 08/30/24 08/30/24 12:30 14:35 WBC 8.3 RBC 4.77 Hgb 13.3 Hct 41.2 MCV 86.4 MCH 27.9 MCHC 32.3 RDW Std Deviation 45.2 H RDW Coeff of Lucio 14.3 Plt Count 311 MPV 9.3 Immature Gran % (Auto) 0.400 Neut % (Auto) 54.1 Lymph % (Auto) 31.6 [place] % (Auto) 10.3 H Eos % (Auto) 3.1 Baso % (Auto) 0.5 Absolute Neuts (auto) 4.5 Absolute Lymphs (auto) 2.61 Nucleated RBC % 0 Sodium 141 Potassium 3.8 Chloride 103 Carbon Dioxide 26.6 Anion Gap 12 BUN 23 H Creatinine 1.06 Estim Creat Clear Calc 53.40 Est GFR (MDRD) Non-Af 57 L BUN/Creatinine Ratio 22.1 H Glucose 120 H Calcium 9.4 Total Bilirubin 0.31 Direct Bilirubin 0.13 AST 20 ALT 18 Alkaline Phosphatase 102 Troponin T High Sens 6 Troponin T Hi Sens 2 Hr 7 Total Protein 7.5 Albumin 4.1 Globulin 3.4 Lipase 87 H Radiography Diagnostic Testing: Clinical Impression(s) from Imaging Studies Chest X-Ray 08/30/24 12:53 IMPRESSION: Lungs appear clear of acute disease, and unchanged. No pleural effusion or pneumothorax is evident. The cardiomediastinal silhouette is stable, without evidence of cardiomegaly. No significant interval osseous change is seen. Prominent bilateral acromioclavicular joint degenerative changes are again noted. No evidence of acute cardiopulmonary disease. Reading Location: [place] [id number] Discharge Plan Triage Chief Complaint: Chest Pain ED Provider: Gypsy Baltazar Dx/Rx/DC Orders Prescriptions: No Action hydrochlorothiazide 12.5 mg tablet 12.5 mg PO DAILY atorvastatin 40 mg tablet 40 mg PO QHS metformin 500 mg tablet 1,000 mg PO DAILY levothyroxine 25 mcg tablet 25 mcg PO DAILY lisinopril 40 mg tablet 40 mg PO DAILY metoprolol succinate 50 mg tablet extended release 24 hr 50 mg PO DAILY Qty: 90 3RF Rybelsus 14 mg tablet 14 mg PO QDAY estradiol 0.5 mg tablet 0.25 mg PO .QOD Qty: 60 0RF Primary Care Provider: Kristy Duran Referrals: Kristy Duran DO [Primary Care Provider] - Print Language: Kinyarwanda
--- NOTE | 2024-08-30 15:19 | ED.VIS.CHEST ---
HPI History of Present Illness Chief Complaint: Chest Pain Informant: patient Narrative Narrative: Patient is a 69-year-old female with history of hypothyroidism, type 2 diabetes mellitus, hypertension presenting from home for episode of chest pain rating to her back. Patient states this morning she developed pain in the center of her back that she describes more as a pressure. She is did occur after eating chicken for breakfast. She also she has had increased belching. She has associated chest discomfort. Denies abdominal pain. No nausea or vomiting. Denies any numbness or tingling in her arms or legs. Denies any fever or chills. Especially concerned because her mother of thoracic aneurysm that ruptured. Patient does not take anything for heartburn. States she has been taking her GERD medications. She notes that she had an EGD remotely with Dr. Banegas and thinks it was normal. Denies any swelling of her legs. Denies any shortness of breath or difficulty breathing. No other complaints or concerns at this time. [facility] Medical History Skin cancer Bilateral carpal tunnel syndrome Hidradenitis Right bundle branch block Gout Diverticulosis Abnormal stress test Hypothyroidism Thyromegaly Type 2 diabetes mellitus Nodule of right lung Pure hypercholesterolemia Abnormal cardiac CT angiography Benign essential hypertension Home Medications ?Medication ?Instructions ?Recorded ?Last Taken ?Type atorvastatin 40 mg tablet 40 mg PO QHS 01/04/19 Unknown History hydrochlorothiazide 12.5 mg tablet 12.5 mg PO DAILY 01/24/19 Unknown History levothyroxine 25 mcg tablet 25 mcg PO DAILY 08/29/23 Unknown History lisinopril 40 mg tablet 40 mg PO DAILY 09/14/23 Unknown History metformin 500 mg tablet 1,000 mg PO DAILY 09/14/23 Unknown History metoprolol succinate 50 mg 50 mg PO DAILY #90 tabs 09/14/23 Unknown Rx tablet,extended release 24 hr estradiol 0.5 mg tablet 0.25 mg (1/2 x 0.5 mg) PO .QOD #60 07/22/24 Unknown Rx tabs semaglutide 14 mg tablet (Rybelsus) 14 mg PO QDAY 08/28/24 Unknown History omeprazole 20 mg capsule,delayed 20 mg PO DAILY #30 caps 08/30/24 Unknown Rx release Allergy/AdvReac Type Severity Reaction Status Date / Time rosuvastatin (From Crestor) AdvReac Unknown Unknown Verified 08/30/24 12:12 Penicillins AdvReac Other Verified 08/30/24 12:12 Family History Mother Abdominal aortic aneurysm (AAA) Sister Hypertension Diabetes Father CAD (coronary artery disease) Diabetes Atrial fibrillation Surgical History Hx of breast reduction, elective History of left heart catheterization (LHC) (~03/08/19) History of total hysterectomy History of dilatation and curettage History of appendectomy Social History household members: spouse number of children: 1 current occupational status: employed current occupation: data keyer, customer service at [employer] history of recent travel: No sexually active: Yes Smoking Status: Former smoker alcohol intake: never substance use type: does not use caffeine: Yes Type: carbonated beverages Number of servings: 2 what type of physical activity do you participate in: none seatbelt use: always do you feel safe at home: Yes additional social history: - kyra [facility]IS[facility] ED Constitutional Constitutional ED: Denies chills or fever(s) ENT ENT ED: Denies rhinorrhea Cardiovascular Cardiovascular: Reports as per HPI and chest pain Respiratory/Chest Respiratory/Chest: Denies cough or dyspnea Gastrointestinal Gastrointestinal: Denies abdominal pain, constipation, diarrhea, nausea or vomiting Musculoskeletal Musculoskeletal: Reports back pain; Denies arthralgias Psychiatric Psychiatric: Denies anxiety Hematologic/Lymphatic Hematologic/Lymphatic: Denies easy bleeding or easy bruising EXAM Physical Exam Const Vital Signs: 08/30/24 12:13 08/30/24 12:18 08/30/24 13:31 Temperature 97.6 F L Temperature Source Temporal Pulse Rate 82 73 Respiratory Rate 18 15 Respiratory Effort Blood Pressure 140/78 H 114/61 Blood Pressure Mean 98 78 Pulse Ox 100 98 Oxygen Delivery Method Room Air Room Air 08/30/24 13:31 08/30/24 15:00 08/30/24 16:00 Temperature Temperature Source Pulse Rate 82 82 Respiratory Rate 16 Respiratory Effort Normal Non-Labored Blood Pressure 126/61 H 116/65 Blood Pressure Mean 82 81 Pulse Ox 98 99 Oxygen Delivery Method Room Air 08/30/24 17:00 Temperature Temperature Source Pulse Rate 77 Respiratory Rate 18 Respiratory Effort Blood Pressure 113/63 Blood Pressure Mean 79 Pulse Ox 98 Oxygen Delivery Method Positive well nourished and well developed General Appearance ED: well developed and NAD HEENT Reports moist mucous membranes Eyes PERRL Neck supple and no JVD Chest Wall inspection of chest normal and palpation of chest normal Resp normal respiratory effort and clear to auscultation bilaterally Cardio regular rate, regular rhythm and no murmurs Cardio Narrative: 2+ radial DP pulses present Peripheral Pulses: radial pulses present and dorsalis pedis pulses present GI normal to inspection, nondistended, normoactive bowel sounds, soft to palpation and non-tender GI Narrative: Normoactive bowel sounds. Negative Turner sign. No pain with palpation of the epigastric region. No pulsatile mass. Extremity normal to inspection Neuro oriented x3 Sensorium / Orientation: awake and alert Motor Exam: Negative for general weakness Psych mental status grossly normal Skin no rashes or lesions noted and no wounds Heart Score History: Slightly/Non-Suspicious ECG: Normal Age: >/= 65 years Risk Factors: >/= 3 Risk Factors or History of CAD Troponin: </= Normal Limit Score: 4 MDM MDM MDM Narrative Medical decision making narrative: Patient evaluated for chest pain that radiates to her back associated back discomfort. Does have associated belching. Is especially concerned because her mother of a ruptured aortic aneurysm. Patient is not aware of any history of aneurysm. Does report multiple cardiac risk factors including hypertension and diabetes mellitus and did smoke for a year about 20 years ago. EKG does not show acute ischemic changes. Chest x-ray viewed by myself as well as radiology does not show any acute process. Cardiac workup largely normal with normal high-sensitivity troponin x 2. Her lipase is minimally elevated 87. Patient is on semaglutide which is increased risk of pancreatitis. CTA of the chest abdomen pelvis for evaluation of aortic pathology as well as other intra-abdominal or thoracic pathology is obtained. This is negative for any acute process. The pancreas is normal. Patient is given a GI cocktail with improvement of her symptoms in the ER. At this time will be discharged home with outpatient follow-up. Started on PPI therapy. Is given return precautions. She verbalized agreement to this plan. Discharged home in stable condition. Lab Data Attestation: I reviewed the patient's lab results. Labs: Laboratory Results - last 24 hr 08/30/24 08/30/24 12:30 14:35 WBC 8.3 RBC 4.77 Hgb 13.3 Hct 41.2 MCV 86.4 MCH 27.9 MCHC 32.3 RDW Std Deviation 45.2 H RDW Coeff of Lucio 14.3 Plt Count 311 MPV 9.3 Immature Gran % (Auto) 0.400 Neut % (Auto) 54.1 Lymph % (Auto) 31.6 [place] % (Auto) 10.3 H Eos % (Auto) 3.1 Baso % (Auto) 0.5 Absolute Neuts (auto) 4.5 Absolute Lymphs (auto) 2.61 Nucleated RBC % 0 Sodium 141 Potassium 3.8 Chloride 103 Carbon Dioxide 26.6 Anion Gap 12 BUN 23 H Creatinine 1.06 Estim Creat Clear Calc 53.40 Est GFR (MDRD) Non-Af 57 L BUN/Creatinine Ratio 22.1 H Glucose 120 H Calcium 9.4 Total Bilirubin 0.31 Direct Bilirubin 0.13 AST 20 ALT 18 Alkaline Phosphatase 102 Troponin T High Sens 6 Troponin T Hi Sens 2 Hr 7 Total Protein 7.5 Albumin 4.1 Globulin 3.4 Lipase 87 H Radiography Diagnostic Testing: Clinical Impression(s) from Imaging Studies Chest X-Ray 08/30/24 12:53 IMPRESSION: Lungs appear clear of acute disease, and unchanged. No pleural effusion or pneumothorax is evident. The cardiomediastinal silhouette is stable, without evidence of cardiomegaly. No significant interval osseous change is seen. Prominent bilateral acromioclavicular joint degenerative changes are again noted. No evidence of acute cardiopulmonary disease. Reading Location: [id number] Chest/Abdomen/Pelvis CTA 08/30/24 13:09 IMPRESSION: 1. Scattered atherosclerotic calcification, without evidence of dissection, thrombosis or aneurysm. 2. No acute findings in the chest, abdomen and pelvis. 3. 4 mm right lower lobe indeterminate subsolid nodule. Reading Location: [facility] Rhythm Strip Rhythm Strip: Sinus Rhythm Rate: 74 Ectopy: None EKG Initial EKG: Attestation: I personally reviewed and interpreted this EKG as follows: Interpretation: Sinus Rhythm Comments: Normal sinus rhythm rate of 74 bpm Normal axis Normal intervals Normal ST segments Prior EKG tracings: available for review Prior: Unchanged Discharge Plan Triage Chief Complaint: Chest Pain ED Provider: Gypsy Baltazar Dx/Rx/DC Orders Clinical Impression: Back pain Instructions: ED Chest Pain, Noncardiac, ED Back Pain (Acute or Chronic) Prescriptions: New omeprazole 20 mg capsule,delayed release(DR/EC) 20 mg PO DAILY Qty: 30 0RF No Action hydrochlorothiazide 12.5 mg tablet 12.5 mg PO DAILY atorvastatin 40 mg tablet 40 mg PO QHS metformin 500 mg tablet 1,000 mg PO DAILY levothyroxine 25 mcg tablet 25 mcg PO DAILY lisinopril 40 mg tablet 40 mg PO DAILY metoprolol succinate 50 mg tablet extended release 24 hr 50 mg PO DAILY Qty: 90 3RF Rybelsus 14 mg tablet 14 mg PO QDAY estradiol 0.5 mg tablet 0.25 mg PO .QOD Qty: 60 0RF Primary Care Provider: Kristy Duran Referrals: Kristy Duran DO [Primary Care Provider] - Activity Restrictions/Additional Instructions: Your workup today was normal with no acute abnormalities of your aorta or heart. Specifically your CT said there is no thoracic aortic aneurysm or dissection. Your gallbladder appeared normal. Your lipase was minimally elevated which is nonspecific however your CT did not comment on any abnormalities or inflammation of the pancreas. Will start you on an antacid. Please follow-up with your primary care doctor. Return if you have progression worsening your symptoms or further concerns. Print Language: Greenlandic Disposition Disposition: Home, Self Care
[2024-08-30 16:00] VITALS: BP 116/65; PULSE 82; O2SAT 99
[2024-08-30] MEDS: Mag Hydrox/Al Hydrox/Simeth 30 ML UDC PO (16:48)
[2024-08-30] MEDS: Lidocaine 2% Viscous15 ML UDC 15 ML PO (16:48)
[2024-08-30 17:00] VITALS: BP 113/63; PULSE 77; RESP 18; O2SAT 98
[2024-08-30 17:34] VITALS: BP 116/83; PULSE 81; RESP 16; TEMP 36.6; O2SAT 98
== END 2024-08-30 17:35 | disposition home or self-care (01) ==
PROVIDERS: Emergency Provider Emergency Medicine; PCP Internal Medicine; Referring Provider Emergency Medicine; Visit Provider Emergency Medicine
DX: M54.9 Dorsalgia, unspecified (principal); E11.9 Type 2 diabetes mellitus without complications; Z82.49 Family history of ischemic heart disease and other diseases of the circulatory system; E78.00 Pure hypercholesterolemia, unspecified; Z83.3 Family history of diabetes mellitus; R14.2 Eructation; Z87.891 Personal history of nicotine dependence; Z90.710 Acquired absence of both cervix and uterus; E03.9 Hypothyroidism, unspecified; I10 Essential (primary) hypertension
CPT/HCPCS: 71045; 71275; 74174; 80048; 80076; 83690; 84484; 85025; 93005; 99284; Q9967; A4216

== ENCOUNTER → 2024-09-04 | Outpatient (CLI) | payer OTHER, SELFPAY ==
--- NOTE | 2024-09-04 15:47 | BD_ITS ---
PROCEDURE: DEXA BONE DENSITY STUDY 09/04/2024 REASON FOR EXAM: POSTMENOPAUSAL F, age 69 y/o . Postmenopausal. TECHNIQUE: DXA scan of sites with data reported below. REFERENCE LINKS: ISCD Adult Positions COMPARISON: None FINDINGS: BMD and T-SCORES Lumbar spine: 1.558 g/cm2, T-score 5.3 Levels: L1 through L4 Left femoral neck: 1.083 g/cm2, T-score 2.1 Femoral neck comparison data not recommended for monitoring change. Left total hip: 1.196 g/cm2, T-score 2.1 Right femoral neck: 1.162 g/cm2, T-score 2.8 Femoral neck comparison data not recommended for monitoring change. Right total hip: 1.211 g/cm2, T-score 2.2 The World Health Organization has defined the following categories based on bone density: Normal bone density: T-score equal to or greater than -1.0 Osteopenia: T-score between -1.0 and -2.5 Osteoporosis: T-score equal to or less than -2.5 The patient does meet the pharmacological treatment recommendations for prevention of osteoporosis. BD/Dexa Bone Density Study IMPRESSION: NORMAL T-SCORES. Recommend follow-up as clinically warranted. Reading Location: [facility]
== END | disposition home or self-care (01) ==
LOC: OPBD 15:42
PROVIDERS: PCP Internal Medicine; Referring Provider Nurse Practitioner Women's Health; Visit Provider Nurse Practitioner Women's Health
DX: Z78.0 Asymptomatic menopausal state (principal)
CPT/HCPCS: 77080

== ENCOUNTER → 2024-11-27 | Outpatient (CLI) | payer OTHER, SELFPAY ==
--- NOTE | 2024-11-27 13:05 | NEURO ---
NCS and/or EMG Patient Report Ordering Doctor: Mc Walker DATE OF SERVICE: 11/27/24 Berenice presents with complaints of numbness and tingling in the left hand, progressively worsening over the past 5 years. Electrodiagnostic findings: Left median motor nerve demonstrates borderline prolonged distal latency with normal amplitude and reduced conduction velocity. Left ulnar motor nerve demonstrates normal distal latency, amplitude and conduction velocity. Long left median sensory latency at the wrist. Normal left ulnar and radial sensory responses. Needle EMG testing was performed to the left upper limb. All muscles tested showed no evidence of denervation with normal motor unit action potentials. Electrodiagnostic impression: This is an abnormal study in the left upper limb. 1. 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 This consistent with a mild left carpal tunnel syndrome. Multi Select Codes Neurology Neurology Interp Codes: 65233-09 Musc test done w/n test comp (interp) and 27821-14 Nrv cndj tst 5-6 studies (interp)
== END | disposition home or self-care (01) ==
PROVIDERS: PCP Internal Medicine; Referring Provider Specialist; Visit Provider Specialist
DX: G56.02 Carpal tunnel syndrome, left upper limb (principal); R20.2 Paresthesia of skin
CPT/HCPCS: 95886; 95909

== ENCOUNTER → 2024-12-07 | Outpatient (CLI) | payer OTHER, SELFPAY ==
[2024-12-07 11:12] LABS: Anion Gap 11 (5-15); BUN 22 mg/dL (4-19); BUN/Creat Ratio 22.6 RATIO (10-20); Calcium,Total 9.3 mg/dL (7.6-11.0); Carbon Dioxide 26.9 mmol/L (21.0-32.0); Chloride 103 mmol/L (98-108); Glucose 99 mg/dL (70-99); Potassium 4.5 mmol/L (3.3-5.1)
== END | disposition home or self-care (01) ==
LOC: LAB 10:05
PROVIDERS: PCP Internal Medicine; Referring Provider Specialist; Visit Provider Specialist
DX: Z01.810 Encounter for preprocedural cardiovascular examination (principal); Z01.818 Encounter for other preprocedural examination
CPT/HCPCS: 36415; 80048